=== PATIENT | female | born 1965 | race Caucasian/White ===

== ENCOUNTER 2018-05-14 15:47 | Inpatient (IN) | payer BC, OTHER ==
[2018-05-14] MEDS ORDERED: Albuterol/Ipratropium 3.0-0.5 MG/3 ML Neb Soln NEB ONE (16:15)
[2018-05-14] MEDS ORDERED: predniSONE 20 MG Tab PO STA (16:16)
[2018-05-14] MEDS ORDERED: Albuterol 0.083% 2.5 MG/3 ML Neb Soln NEB ONE (16:39)
[2018-05-14] MEDS ORDERED: Albuterol 0.083% 2.5 MG/3 ML Neb Soln NEB STA (17:01)
--- NOTE | 2018-05-14 17:14 | EDM.PDOC ---
ED HPI GENERAL MEDICAL PROBLEM - General Chief Complaint: Respiratory Problem Stated Complaint: SOB Time Seen by Provider: 05/14/18 15:59 Source of Information: Reports: Patient History Limitations: Reports: No Limitations - History of Present Illness INITIAL COMMENTS - FREE TEXT/NARRATIVE: The patient states that she has a history of asthma, diagnosed when she was in 11th grade, although she has never seen a Logging Tractor Operator, and has never undergone pulmonary function tests. She states that she has had shortness of breath, wheezing, and a cough productive of yellow/dark green sputum since 05/09/2018. Her wheezing is worse if she is supine. She reports some nasal and sinus congestion for the past 2 days. She states that her throat is sore from coughing. She states that she was seen at the clinic on 05/10/2018. A chest radiograph apparently showed haziness bibasilarly. She was given a DuoNeb in the clinic, then discharged with prescriptions for doxycycline and prednisone. She does not know the dose of the prednisone, but believes it is 10 mg a day. She states that her symptoms have not improved. The patient states that she has albuterol by nebulizer at home. She states that she will take a nap every hour at night when she is symptomatic, then another in the morning, and another around 13:00 in the afternoon. She states that she has a prescription for an albuterol MDI, but has not picked it up. She does not have a peak flow meter or space chamber at home. Despite the patient's history of asthma, she continues to smoke one pack of cigarettes per day, although states that she has not smoked any over the past few days. The patient has not been diagnosed with obstructive sleep apnea, however, she states that her twin sister has it, and the patient presumes that she has, as she is morbidly obese. The patient's PCP is Leona Deleon. Chest Pain Score (Numeric/FACES): 3 - Related Data Allergies Allergy/AdvReac Type Severity Reaction Status Date / Time cephalexin [From Keflex] Allergy Swelling Verified 05/14/18 15:59 codeine Allergy Vomiting Verified 05/14/18 15:59 Sulfa (Sulfonamide Allergy Vomiting Verified 05/14/18 15:59 Antibiotics) Home Meds: Home Meds Albuterol [Proventil Neb Soln] 1.25 mg NEB Q4H 05/14/18 [History] Past Medical History HEENT History: Reports: Impaired Vision Respiratory History: Reports: Asthma (presumed) Endocrine/Metabolic History: Reports: Obesity/BMI 30+ - Past Surgical History Female Surgical History: Reports: Hysterectomy Social & Family History - Family History Family Medical History: Noncontributory - Tobacco Use Smoking Status *Q: Current Every Day Smoker Years of Tobacco use: 37 Packs/Tins Daily: 1 - Alcohol Use Alcohol Use History: Yes Alcohol Use Frequency: Rarely - Recreational Drug Use Recreational Drug Use: No - Living Situation & Occupation Living situation: Reports: , Alone 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) ED ROS GENERAL - Review of Systems Review Of Systems: ROS reveals no pertinent complaints other than HPI. ED EXAM, GENERAL - Physical Exam Exam: See Below Exam Limited By: No Limitations General Appearance: Alert, WD/WN, No Apparent Distress Eye Exam: Bilateral Eye: EOMI, Normal Inspection Ears: Normal External Exam, Normal Canal, Hearing Grossly Normal, Normal TMs Nose: Normal Inspection, Normal Mucosa, No Blood Throat/Mouth: Normal Inspection, Normal Lips, Normal Teeth, Normal Gums, Normal Oropharynx, Normal Voice, No Airway Compromise Head: Atraumatic, Normocephalic Neck: Normal Inspection, Supple, Non-Tender, Full Range of Motion. No: Lymphadenopathy (L), Lymphadenopathy (R) Respiratory/Chest: No Respiratory Distress, No Accessory Muscle Use, Chest Non- Tender, Wheezing (expiratory, across all lung king). No: Crackles, Rhonchi Cardiovascular: Normal Peripheral Pulses, Regular Rate, Rhythm, No Gallop, No JVD, No Murmur, No Rub Peripheral Pulses: 4+: Radial (L), Radial (R) GI/Abdominal: Normal Bowel Sounds, Soft, Non-Tender, No Organomegaly, No Distention, No Abnormal Bruit, No Mass, Other (Obese) (Female) Exam: Deferred Rectal (Female) Exam: Deferred Back Exam: Normal Inspection, Full Range of Motion, NT Extremities: Normal Inspection, Normal Range of Motion, No Pedal Edema, Normal Capillary Refill Neurological: Alert, Oriented, Normal Cognition, No Motor/Sensory Deficits Psychiatric: Normal Affect Skin Exam: Warm, Dry, Intact, Normal Color, No Rash Course - Vital Signs Last Recorded V/S: Last Vital Signs Temp 36.3 C 05/14/18 15:52 Pulse 118 H 05/14/18 15:52 Resp 22 H 05/14/18 15:52 BP 130/78 05/14/18 15:52 Pulse Ox 91 L 05/14/18 17:02 - Orders/Labs/Meds Orders: Active Orders 24 hr Category Date Time Status RT Aerosol Therapy [RC] ASDIRECTED Care 05/14/18 16:16 Active RT Aerosol Therapy [RC] ASDIRECTED Care 05/14/18 16:39 Active RT Aerosol Therapy [RC] ASDIRECTED Care 05/14/18 17:02 Active RT Peak Flow Measurement [RC] ASDIRECTED Care 05/14/18 16:17 Active Chest 2V [CR] Stat Exams 05/14/18 17:02 Taken DME for Discharge [COMM] Stat Oth 05/14/18 16:17 Ordered Labs: Laboratory Tests 05/14/18 05/14/18 Range/Units 17:29 17:29 WBC 16.34 H (3.98-10.04) K/mm3 RBC 5.68 H (3.98-5.22) M/mm3 Hgb 15.5 (11.2-15.7) gm/L Hct 47.5 H (34.1-44.9) % MCV 83.6 (79.4-94.8) fl MCH 27.3 (25.6-32.2) pg MCHC 32.6 (32.2-35.5) g/dl RDW Std Deviation 45.8 (36.4-46.3) fL Plt Count 287 (182-369) K/mm3 MPV 10.3 (9.4-12.3) fl Neutrophils % (Manual) 70 H (40-60) % Band Neutrophils % 0 (0-10) % Lymphocytes % (Manual) 26 (20-40) % Atypical Lymphs % 0 % Monocytes % (Manual) 1 L (2-10) % Eosinophils % (Manual) 3 (0.7-5.8) % Basophils % (Manual) 0 L (0.1-1.2) Platelet Estimate Adequate RBC Morph Comment Normal Sodium 141 (136-145) mEq/L Potassium 3.5 (3.5-5.1) mEq/L Chloride 103 (98-107) mEq/L Carbon Dioxide 25 (21-32) mEq/L Anion Gap 16.5 H (5-15) BUN 16 (7-18) mg/dL Creatinine 0.8 (0.55-1.02) mg/dL Est Cr Clr Drug Dosing 73.18 mL/min Estimated GFR (MDRD) > 60 (>60) mL/min BUN/Creatinine Ratio 20.0 H (14-18) Glucose 125 H (74-106) mg/dL Calcium 9.3 (8.5-10.1) mg/dL Total Bilirubin 0.5 (0.2-1.0) mg/dL AST 29 (15-37) U/L ALT 59 (14-59) U/L Alkaline Phosphatase 108 (46-116) U/L Total Protein 7.7 (6.4-8.2) g/dl Albumin 3.5 (3.4-5.0) g/dl Globulin 4.2 gm/dL Albumin/Globulin Ratio 0.8 L (1-2) Meds: Medications Discontinued Medications Generic Name Dose Route Start Last Admin Trade Name Yfn PRN Reason Stop Dose Admin Albuterol 2.5 mg 05/14/18 16:39 05/14/18 16:43 Proventil Neb Soln NEB 05/14/18 16:40 2.5 mg ONETIME ONE Administration Albuterol 7.5 mg 05/14/18 17:01 05/14/18 17:16 Proventil Neb Soln NEB 05/14/18 17:02 7.5 mg ONETIME STA Administration Albuterol/Ipratropium 3 ml 05/14/18 16:15 05/14/18 16:26 Duoneb 3.0-0.5 Mg/3 Ml NEB 05/14/18 16:16 3 ml ONETIME ONE Administration Prednisone 60 mg 05/14/18 16:16 05/14/18 16:41 Prednisone PO 05/14/18 16:17 60 mg ONETIME STA Administration - Re-Assessments/Exams Free Text/Narrative Re-Assessment/Exam: 05/14/18 17:03 The patient's pre-and post DuoNeb peak flow was 240, then only up to 250 following an albuterol neb. Her lungs do not sound much better to me. Her peak flow technique is pretty good. I have ordered a triple albuterol neb, but will also check some blood work and a chest x-ray, to make sure that there is nothing else going on. The fact that her wheezing is worse when she is supine suggest chronic bronchitis, although she has not coughed in my presence. 05/14/18 18:13 2-view chest radiograph reviewed. Cardiac silhouette is within normal limits. No pulmonary vascular congestion. No pleural effusions. No focal infiltrate. No pneumothorax. There is mild hyperinflation, consistent with an asthma exacerbation, noted. Formal read per the Radiologist pending. 05/14/18 20:07 The patient was reevaluated. She has unchanged expiratory wheezes in all lung king, and her peak flow is still 250. I do not feel that we have made many inroads into her asthma exacerbation, and I am therefore recommending that she be admitted for further treatment. The patient has agreed. Case discussed with Dr. Ferris at 20:05. She accepts the patient for full admission to Med-Surg. She'll come by the ED to evaluate the patient. Departure - Departure Time of Disposition: 20:10 Disposition: Home, Self-Care 01 Condition: Fair Clinical Impression: Asthma exacerbation - Discharge Information *PRESCRIPTION DRUG MONITORING PROGRAM REVIEWED*: Not Applicable *COPY OF PRESCRIPTION DRUG MONITORING REPORT IN PATIENT ALBERT: Not Applicable - My Orders Last 24 Hours: My Active Orders 05/14/18 16:16 RT Aerosol Therapy [RC] ASDIRECTED 05/14/18 16:17 RT Peak Flow Measurement [RC] ASDIRECTED DME for Discharge [COMM] Stat 05/14/18 16:39 RT Aerosol Therapy [RC] ASDIRECTED 05/14/18 17:02 RT Aerosol Therapy [RC] ASDIRECTED Chest 2V [CR] Stat - Assessment/Plan Last 24 Hours: My Active Orders 05/14/18 16:16 RT Aerosol Therapy [RC] ASDIRECTED 05/14/18 16:17 RT Peak Flow Measurement [RC] ASDIRECTED DME for Discharge [COMM] Stat 05/14/18 16:39 RT Aerosol Therapy [RC] ASDIRECTED 05/14/18 17:02 RT Aerosol Therapy [RC] ASDIRECTED Chest 2V [CR] Stat
[2018-05-14] MEDS ORDERED: Acetaminophen 325 MG Tab PO PRN (21:07)
[2018-05-14] MEDS ORDERED: Temazepam 7.5 MG Cap PO PRN (21:13)
[2018-05-14] MEDS ORDERED: Albuterol 0.083% 2.5 MG/3 ML Neb Soln NEB PRN (21:13)
[2018-05-14] MEDS ORDERED: Benzonatate 100 MG Cap PO PRN (21:13)
[2018-05-14] MEDS ORDERED: Sodium Chloride 0.9% 10 ML Syringe FLUSH PRN (22:25)
[2018-05-14] MEDS: Levofloxacin/Dextrose 5%-Water 750 MG in Premix Bag 1 BAG IV SCH (22:46)
[2018-05-14] MEDS: Nicotine 21 MG/24 Hr Patch TRDERM SCH (22:49)
[2018-05-15] MEDS: methylPREDNISolone Sodium Succinate 125 MG/2 ML SDV IVPUSH SCH ×5 (00:31→20:37)
[2018-05-15] MEDS: Albuterol/Ipratropium 3.0-0.5 MG/3 ML Neb Soln NEB SCH ×4 (03:31→20:16)
[2018-05-15] MEDS ORDERED: Sodium Chloride 0.9% 1,000 ML IV ONE (07:08)
--- NOTE | 2018-05-15 07:34 | CR ---
Chest: 2 views of the chest were obtained. Comparison: No prior chest x-ray. Lung markings are slightly increased suspicious for bronchitis. Lungs otherwise are clear with no acute alveolar opacities. Bony structures are within normal limits for the patient's age. Heart size and mediastinum are normal. Impression: 1. Mild increased central lung markings most likely representing bronchitis. Diagnostic code #3
[2018-05-15] MEDS: Sodium Chloride 0.9% 1,000 ML IV SCH ×3 (08:42→20:34)
[2018-05-15] MEDS: Nicotine 21 MG/24 Hr Patch TRDERM SCH (09:06)
[2018-05-15] MEDS: Remove Patch **NICOTINE TRDERM SCH (09:07)
--- NOTE | 2018-05-15 10:04 | PCM.PN ---
- General Info Date of Service: 05/15/18 Functional Status: Reports: Tolerating Diet, Ambulating (only walking in the room) - Review of Systems General: Reports: Weakness HEENT: Reports: No Symptoms Pulmonary: Reports: Shortness of Breath Cardiovascular: Reports: No Symptoms Gastrointestinal: Reports: No Symptoms Genitourinary: Reports: No Symptoms Musculoskeletal: Reports: No Symptoms Skin: Reports: No Symptoms Neurological: Reports: No Symptoms Psychiatric: Reports: No Symptoms - Patient Data Vitals - Most Recent: Last Vital Signs Temp 37.4 C 05/15/18 08:20 Pulse 111 H 05/15/18 08:39 Resp 14 05/15/18 08:20 BP 144/75 H 05/15/18 08:20 Pulse Ox 92 L 05/15/18 08:40 Weight - Most Recent: 130.362 kg I&O - Last 24 Hours: Intake & Output 05/14/18 05/15/18 05/15/18 22:59 06:59 14:59 Intake Total 940 Output Total 1000 Balance -60 Lab Results Last 24 Hours: Laboratory Results - last 24 hr 05/14/18 05/14/18 05/15/18 Range/Units 17:29 17:29 05:50 WBC 16.34 H 14.81 H (3.98-10.04) K/mm3 RBC 5.68 H 5.65 H (3.98-5.22) M/mm3 Hgb 15.5 15.6 (11.2-15.7) gm/L Hct 47.5 H 47.2 H (34.1-44.9) % MCV 83.6 83.5 (79.4-94.8) fl MCH 27.3 27.6 (25.6-32.2) pg MCHC 32.6 33.1 (32.2-35.5) g/dl RDW Std Deviation 45.8 45.5 (36.4-46.3) fL Plt Count 287 275 (182-369) K/mm3 MPV 10.3 10.2 (9.4-12.3) fl Neut % (Auto) 87.2 H (34.0-71.1) % Lymph % (Auto) 10.9 L (19.3-51.7) % Cecil % (Auto) 1.1 L (4.7-12.5) % Eos % (Auto) 0.1 L (0.7-5.8) Baso % (Auto) 0.1 (0.1-1.2) % Neut # (Auto) 12.92 H (1.56-6.13) K/mm3 Lymph # (Auto) 1.61 (1.18-3.74) K/mm3 Cecil # (Auto) 0.17 L (0.24-0.36) K/mm3 Eos # (Auto) 0.01 L (0.04-0.36) K/mm3 Baso # (Auto) 0.01 (0.01-0.08) K/mm3 Neutrophils % (Manual) 70 H (40-60) % Band Neutrophils % 0 (0-10) % Lymphocytes % (Manual) 26 (20-40) % Atypical Lymphs % 0 % Monocytes % (Manual) 1 L (2-10) % Eosinophils % (Manual) 3 (0.7-5.8) % Basophils % (Manual) 0 L (0.1-1.2) Manual Slide Review Abnormal smear Platelet Estimate Adequate RBC Morph Comment Normal Sodium 141 (136-145) mEq/L Potassium 3.5 (3.5-5.1) mEq/L Chloride 103 (98-107) mEq/L Carbon Dioxide 25 (21-32) mEq/L Anion Gap 16.5 H (5-15) BUN 16 (7-18) mg/dL Creatinine 0.8 (0.55-1.02) mg/dL Est Cr Clr Drug Dosing 73.18 mL/min Estimated GFR (MDRD) > 60 (>60) mL/min BUN/Creatinine Ratio 20.0 H (14-18) Glucose 125 H (74-106) mg/dL Lactic Acid (0.4-2.0) mmol/L Calcium 9.3 (8.5-10.1) mg/dL Magnesium (1.8-2.4) mg/dl Total Bilirubin 0.5 (0.2-1.0) mg/dL AST 29 (15-37) U/L ALT 59 (14-59) U/L Alkaline Phosphatase 108 (46-116) U/L Total Protein 7.7 (6.4-8.2) g/dl Albumin 3.5 (3.4-5.0) g/dl Globulin 4.2 gm/dL Albumin/Globulin Ratio 0.8 L (1-2) Mycoplasma pneumon IgM (NEGATIVE) 05/15/18 05/15/18 Range/Units 05:50 05:50 WBC (3.98-10.04) K/mm3 RBC (3.98-5.22) M/mm3 Hgb (11.2-15.7) gm/L Hct (34.1-44.9) % MCV (79.4-94.8) fl MCH (25.6-32.2) pg MCHC (32.2-35.5) g/dl RDW Std Deviation (36.4-46.3) fL Plt Count (182-369) K/mm3 MPV (9.4-12.3) fl Neut % (Auto) (34.0-71.1) % Lymph % (Auto) (19.3-51.7) % Cecil % (Auto) (4.7-12.5) % Eos % (Auto) (0.7-5.8) Baso % (Auto) (0.1-1.2) % Neut # (Auto) (1.56-6.13) K/mm3 Lymph # (Auto) (1.18-3.74) K/mm3 Cecil # (Auto) (0.24-0.36) K/mm3 Eos # (Auto) (0.04-0.36) K/mm3 Baso # (Auto) (0.01-0.08) K/mm3 Neutrophils % (Manual) (40-60) % Band Neutrophils % (0-10) % Lymphocytes % (Manual) (20-40) % Atypical Lymphs % % Monocytes % (Manual) (2-10) % Eosinophils % (Manual) (0.7-5.8) % Basophils % (Manual) (0.1-1.2) Manual Slide Review Platelet Estimate RBC Morph Comment Sodium 136 (136-145) mEq/L Potassium 4.4 (3.5-5.1) mEq/L Chloride 101 (98-107) mEq/L Carbon Dioxide 23 (21-32) mEq/L Anion Gap 16.4 H (5-15) BUN 16 (7-18) mg/dL Creatinine 0.9 (0.55-1.02) mg/dL Est Cr Clr Drug Dosing 65.05 mL/min Estimated GFR (MDRD) > 60 (>60) mL/min BUN/Creatinine Ratio 17.8 (14-18) Glucose 232 H (74-106) mg/dL Lactic Acid 2.2 H (0.4-2.0) mmol/L Calcium 9.1 (8.5-10.1) mg/dL Magnesium 2.1 (1.8-2.4) mg/dl Total Bilirubin (0.2-1.0) mg/dL AST (15-37) U/L ALT (14-59) U/L Alkaline Phosphatase (46-116) U/L Total Protein (6.4-8.2) g/dl Albumin (3.4-5.0) g/dl Globulin gm/dL Albumin/Globulin Ratio (1-2) Mycoplasma pneumon IgM Negative (NEGATIVE) Med Orders - Current: Current Medications Acetaminophen (Tylenol) 650 mg PO Q6H PRN PRN Reason: Pain Albuterol (Proventil Neb Soln) 2.5 mg NEB Q4HRRT PRN PRN Reason: shortness of breath Albuterol/Ipratropium (Duoneb 3.0-0.5 Mg/3 Ml) 3 ml NEB Q6HRRT [facility] Last Admin: 05/15/18 08:37 Dose: 3 ml Benzonatate (Tessalon Perles) 100 mg PO Q8HR PRN PRN Reason: Cough Last Admin: 05/15/18 00:45 Dose: 100 mg Levofloxacin/Dextrose 750 mg/ (Premix) 150 mls @ 100 mls/hr IV Q24H [facility] Last Admin: 05/14/18 22:46 Dose: 100 mls/hr Sodium Chloride (Normal Saline) 1,000 mls @ 150 mls/hr IV ASDIRECTED [facility] Last Admin: 05/15/18 08:42 Dose: 150 mls/hr Methylprednisolone Sodium Succinate (Solu-Medrol) 125 mg IVPUSH Q6H [facility] Last Admin: 05/15/18 09:07 Dose: 125 mg Miscellaneous Information (Remove Patch) 1 ea TRDERM DAILY [facility] Last Admin: 05/15/18 09:07 Dose: Not Given Nicotine (Habitrol) 21 mg TRDERM DAILY [facility] Last Admin: 05/15/18 09:06 Dose: Not Given Pneumococcal Polyvalent Vaccine (Pneumovax 23) 0.5 ml IM .ONCE ONE Stop: 05/16/18 09:01 Sodium Chloride (Saline Flush) 10 ml FLUSH ASDIRECTED PRN PRN Reason: Keep Vein Open Temazepam (Restoril) 7.5 mg PO BEDTIME PRN PRN Reason: Sleep Discontinued Medications Albuterol (Proventil Neb Soln) 2.5 mg NEB ONETIME ONE Stop: 05/14/18 16:40 Last Admin: 05/14/18 16:43 Dose: 2.5 mg Albuterol (Proventil Neb Soln) 7.5 mg NEB ONETIME STA Stop: 05/14/18 17:02 Last Admin: 05/14/18 17:16 Dose: 7.5 mg Albuterol/Ipratropium (Duoneb 3.0-0.5 Mg/3 Ml) 3 ml NEB ONETIME ONE Stop: 05/14/18 16:16 Last Admin: 05/14/18 16:26 Dose: 3 ml Sodium Chloride (Normal Saline) 1,000 mls @ 999 mls/hr IV ONETIME ONE Stop: 05/15/18 08:08 Last Admin: 05/15/18 07:18 Dose: 999 mls/hr Prednisone (Prednisone) 60 mg PO ONETIME STA Stop: 05/14/18 16:17 Last Admin: 05/14/18 16:41 Dose: 60 mg - Exam Quality Assessment: DVT Prophylaxis General: Alert, Oriented, Cooperative, No Acute Distress HEENT: Pupils Equal, Pupils Reactive, EOMI Neck: Trachea Midline, No JVD Lungs: Normal Respiratory Effort, Decreased Breath Sounds, Wheezing Cardiovascular: Regular Rate, Tachycardia GI/Abdominal Exam: Normal Bowel Sounds, Soft, Non-Tender, No Organomegaly, No Distention (Female) Exam: Deferred Back Exam: Normal Inspection Extremities: Normal Inspection, Normal Capillary Refill Skin: Warm Neurological: No New Focal Deficit, Normal Speech Psy/Mental Status: Alert, Normal Affect, Normal Mood - Problem List Review Problem List Initiated/Reviewed/Updated: Yes - My Orders Last 24 Hours: My Active Orders 05/14/18 21:07 Acetaminophen [Tylenol] 650 mg PO Q6H PRN 05/14/18 21:13 Albuterol [Proventil Neb Soln] 2.5 mg NEB Q4HRRT PRN Benzonatate [Tessalon Perles] 100 mg PO Q8HR PRN Temazepam [Restoril] 7.5 mg PO BEDTIME PRN 05/14/18 21:17 RT Aerosol Therapy [RC] ASDIRECTED 05/14/18 21:30 Nicotine [Habitrol] 21 mg TRDERM DAILY 05/14/18 22:00 Levofloxacin/Dextrose 5%-Water [Levaquin in D5W 750 MG/150 ML] 750 mg Premix Bag 1 bag IV Q24H methylPREDNISolone Sod Succ [Solu-MEDROL] 125 mg IVPUSH Q6H 05/14/18 22:12 MISC TEST Routine 05/14/18 22:20 Resuscitation Status Routine 05/14/18 22:25 Sodium Chloride 0.9% [Saline Flush] 10 ml FLUSH ASDIRECTED PRN Saline Lock Insert [OM.PC] Routine 05/14/18 23:13 Activity as Tolerated [RC] .Routine 05/15/18 00:14 Oxygen Therapy [RC] ASDIRECTED 05/15/18 03:00 Albuterol/Ipratropium [DuoNeb 3.0-0.5 MG/3 ML] 3 ml NEB Q6HRRT 05/15/18 05:50 CRP, HIGH SENSITIVITY [REF] Routine 05/15/18 06:00 STREP PNEUMONIAE ANTIGEN [MREF] Routine 05/15/18 07:10 Blood Culture x2 Reflex Set [OM.PC] Stat 05/15/18 07:35 CULTURE BLOOD [BC] Stat 05/15/18 07:50 CULTURE BLOOD [BC] Stat 05/15/18 08:30 Sodium Chloride 0.9% [Normal Saline] 1,000 ml IV ASDIRECTED 05/15/18 09:00 Remove Patch 1 ea TRDERM DAILY 05/15/18 14:00 Chest 2V [CR] Routine 05/15/18 Breakfast Heart Healthy Diet [DIET] 05/16/18 09:00 Pneumococcal Polyvalent-23 Vac [Pneumovax 23] 0.5 ml IM .ONCE ONE - Plan Plan:: Impression: Acute exacerbation of Asthma Failed outpatient treatment for bronchitis Tobacco dependence-->discussed tobacco cessation, has not committed to stop, will follow up Query PNA-->CXR to be repeated on 05/16/18 Sepsis-->criteria for sepsis Morbid obesity--weight loss program Plan: Tobacco cessation Nebs scheduled/prn Levaquin IV Steroids IV Peak Flow Meter Droplet isolation PNA work up Sepsis work up IVF-->0.9 NS, 1 liter bolus, run at 150 cc/hr--05/16/18. Dietary consult-->weight loss Consult PT/OT Sleep apnea eval as OP. DVT/GI prophylaxis
--- NOTE | 2018-05-15 10:04 | PCM.HP ---
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 She became short of breath, began noticeably wheezing and had a productive cough. Additional complaint of nasal congestion was also voiced to a health care provider. The following Thursday (), she was seen at a clinic where she was started on prednisone and doxycycline after a chest X ray was suggestive of bronchitis. Unfortunately unlike previous episodes she has experienced little relief. Multiple breathing treatments provided in the ED were unsuccessful. The patient has failed outpatient medical therapy. She will be admitted to [facility] with telemetry. The patient is a full code; her PCP is Alicia Deleon. Asthma history: no intubations; smokes cigarettes; morbidly obese; no peak flow meter; no PFTs; no RUEL evaluation; has never seen a screen operator. Has had a prescription for Albuterol MDI, but it was never picked up after being seen by a provider on 05/10/2018. Onset of Symptoms: Reports: Gradual Symptom Onset Date: 05/09/18 Duration of Symptoms: Reports: Day(s):, Getting Worse Location: Reports: Chest, Generalized Quality: Reports: Same as Previous Episode Severity: Moderate Improves with: Reports: Medication Worsens with: Reports: None Context: Reports: Sick Contact (unknown) Associated Symptoms: Reports: cough w sputum, Malaise, Nausea/Vomiting, Shortness of Breath, Weakness Chest Pain Score (Numeric/FACES): 3 - Related Data Allergies/Adverse Reactions: Allergies Allergy/AdvReac Type Severity Reaction Status Date / Time cephalexin [From Keflex] Allergy Swelling Verified 05/14/18 15:59 codeine Allergy Vomiting Verified 05/14/18 15:59 Sulfa (Sulfonamide Allergy Vomiting Verified 05/14/18 15:59 Antibiotics) Home Medications: Home Meds Albuterol [Proventil Neb Soln] 1.25 mg NEB Q4H 05/14/18 [History] Past Medical History HEENT History: Reports: Impaired Vision Respiratory History: Reports: Asthma, 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: Endocrine/Metabolic History: Reports: Obesity/BMI 30+ - Past Surgical History Female Surgical History: Reports: Hysterectomy Social & Family History - Family History Family Medical History: Noncontributory - Tobacco Use Smoking Status *Q: Current Every Day Smoker Years of Tobacco use: 37 Packs/Tins Daily: 1 Used Tobacco, but Quit: No Second Hand Smoke Exposure: No - Caffeine Use Caffeine Use: Reports: Soda - Recreational Drug Use Recreational Drug Use: No - Living Situation & Occupation Living situation: Reports: , Alone Occupation: Employed (LOG SORTING SUPERVISOR [facility] [employer] H&P Review of Systems - Review of Systems: Review Of Systems: See Below General: Reports: Malaise, Weakness HEENT: Reports: No Symptoms Pulmonary: Reports: Shortness of Breath, Wheezing, Pleuritic Chest Pain Cardiovascular: Reports: No Symptoms Gastrointestinal: Reports: No Symptoms Genitourinary: Reports: No Symptoms Musculoskeletal: Reports: No Symptoms Skin: Reports: No Symptoms Psychiatric: Reports: No Symptoms Neurological: Reports: No Symptoms Hematologic/Lymphatic: Reports: No Symptoms Immunologic: Reports: No Symptoms Exam - Exam Exam: See Below - Vital Signs Vital Signs: Last Vital Signs Temp 37.4 C 05/15/18 08:20 Pulse 111 H 05/15/18 08:39 Resp 14 05/15/18 08:20 BP 144/75 H 05/15/18 08:20 Pulse Ox 92 L 05/15/18 08:40 Weight: 130.362 kg - Exam Quality Assessment: Supplemental Oxygen General: Alert, Oriented, Cooperative HEENT: Conjunctiva Clear, EOMI, Nares Patent, Normal Nasal Septum, Pupils Equal , Pupils Reactive, PERRLA Neck: Supple, Trachea Midline Lungs: Decreased Breath Sounds, Rhonchi, Wheezing Cardiovascular: Regular Rate, Tachycardia GI/Abdominal Exam: Normal Bowel Sounds, Soft, Non-Tender, No Organomegaly, No Distention (Female) Exam: Deferred Rectal (Female) Exam: Deferred Back Exam: Normal Inspection Extremities: Normal Inspection, Non-Tender, Slow Capillary Refill Skin: Warm Neurological: Cranial Nerves Intact, Normal Speech Neuro Extensive - Mental Status: Alert, Oriented x3, Normal Mood/Affect, Normal Cognition, Memory Intact - Patient Data Lab Results Last 24 hrs: Laboratory Results - last 24 hr 05/14/18 05/14/18 05/15/18 Range/Units 17:29 17:29 05:50 WBC 16.34 H 14.81 H (3.98-10.04) K/mm3 RBC 5.68 H 5.65 H (3.98-5.22) M/mm3 Hgb 15.5 15.6 (11.2-15.7) gm/L Hct 47.5 H 47.2 H (34.1-44.9) % MCV 83.6 83.5 (79.4-94.8) fl MCH 27.3 27.6 (25.6-32.2) pg MCHC 32.6 33.1 (32.2-35.5) g/dl RDW Std Deviation 45.8 45.5 (36.4-46.3) fL Plt Count 287 275 (182-369) K/mm3 MPV 10.3 10.2 (9.4-12.3) fl Neut % (Auto) 87.2 H (34.0-71.1) % Lymph % (Auto) 10.9 L (19.3-51.7) % [place]comb % (Auto) 1.1 L (4.7-12.5) % Eos % (Auto) 0.1 L (0.7-5.8) Baso % (Auto) 0.1 (0.1-1.2) % Neut # (Auto) 12.92 H (1.56-6.13) K/mm3 Lymph # (Auto) 1.61 (1.18-3.74) K/mm3 [place] # (Auto) 0.17 L (0.24-0.36) K/mm3 Eos # (Auto) 0.01 L (0.04-0.36) K/mm3 Baso # (Auto) 0.01 (0.01-0.08) K/mm3 Neutrophils % (Manual) 70 H (40-60) % Band Neutrophils % 0 (0-10) % Lymphocytes % (Manual) 26 (20-40) % Atypical Lymphs % 0 % Monocytes % (Manual) 1 L (2-10) % Eosinophils % (Manual) 3 (0.7-5.8) % Basophils % (Manual) 0 L (0.1-1.2) Manual Slide Review Abnormal smear Platelet Estimate Adequate RBC Morph Comment Normal Sodium 141 (136-145) mEq/L Potassium 3.5 (3.5-5.1) mEq/L Chloride 103 (98-107) mEq/L Carbon Dioxide 25 (21-32) mEq/L Anion Gap 16.5 H (5-15) BUN 16 (7-18) mg/dL Creatinine 0.8 (0.55-1.02) mg/dL Est Cr Clr Drug Dosing 73.18 mL/min Estimated GFR (MDRD) > 60 (>60) mL/min BUN/Creatinine Ratio 20.0 H (14-18) Glucose 125 H (74-106) mg/dL Lactic Acid (0.4-2.0) mmol/L Calcium 9.3 (8.5-10.1) mg/dL Magnesium (1.8-2.4) mg/dl Total Bilirubin 0.5 (0.2-1.0) mg/dL AST 29 (15-37) U/L ALT 59 (14-59) U/L Alkaline Phosphatase 108 (46-116) U/L Total Protein 7.7 (6.4-8.2) g/dl Albumin 3.5 (3.4-5.0) g/dl Globulin 4.2 gm/dL Albumin/Globulin Ratio 0.8 L (1-2) Mycoplasma pneumon IgM (NEGATIVE) 05/15/18 05/15/18 Range/Units 05:50 05:50 WBC (3.98-10.04) K/mm3 RBC (3.98-5.22) M/mm3 Hgb (11.2-15.7) gm/L Hct (34.1-44.9) % MCV (79.4-94.8) fl MCH (25.6-32.2) pg MCHC (32.2-35.5) g/dl RDW Std Deviation (36.4-46.3) fL Plt Count (182-369) K/mm3 MPV (9.4-12.3) fl Neut % (Auto) (34.0-71.1) % Lymph % (Auto) (19.3-51.7) % [place]comb % (Auto) (4.7-12.5) % Eos % (Auto) (0.7-5.8) Baso % (Auto) (0.1-1.2) % Neut # (Auto) (1.56-6.13) K/mm3 Lymph # (Auto) (1.18-3.74) K/mm3 [place]comb # (Auto) (0.24-0.36) K/mm3 Eos # (Auto) (0.04-0.36) K/mm3 Baso # (Auto) (0.01-0.08) K/mm3 Neutrophils % (Manual) (40-60) % Band Neutrophils % (0-10) % Lymphocytes % (Manual) (20-40) % Atypical Lymphs % % Monocytes % (Manual) (2-10) % Eosinophils % (Manual) (0.7-5.8) % Basophils % (Manual) (0.1-1.2) Manual Slide Review Platelet Estimate RBC Morph Comment Sodium 136 (136-145) mEq/L Potassium 4.4 (3.5-5.1) mEq/L Chloride 101 (98-107) mEq/L Carbon Dioxide 23 (21-32) mEq/L Anion Gap 16.4 H (5-15) BUN 16 (7-18) mg/dL Creatinine 0.9 (0.55-1.02) mg/dL Est Cr Clr Drug Dosing 65.05 mL/min Estimated GFR (MDRD) > 60 (>60) mL/min BUN/Creatinine Ratio 17.8 (14-18) Glucose 232 H (74-106) mg/dL Lactic Acid 2.2 H (0.4-2.0) mmol/L Calcium 9.1 (8.5-10.1) mg/dL Magnesium 2.1 (1.8-2.4) mg/dl Total Bilirubin (0.2-1.0) mg/dL AST (15-37) U/L ALT (14-59) U/L Alkaline Phosphatase (46-116) U/L Total Protein (6.4-8.2) g/dl Albumin (3.4-5.0) g/dl Globulin gm/dL Albumin/Globulin Ratio (1-2) Mycoplasma pneumon IgM Negative (NEGATIVE) Result Diagrams: 05/15/18 05:50 05/15/18 05:50 - Problem List (1) Morbidly obese SNOMED Code(s): 472329690 ICD Code: E66.01 - MORBID (SEVERE) OBESITY DUE TO EXCESS CALORIES Status: Acute Current Visit: Yes (2) Tobacco dependence due to cigarettes SNOMED Code(s): 61024050596303184 ICD Code: F17.210 - NICOTINE DEPENDENCE, CIGARETTES, UNCOMPLICATED Status: Acute Current Visit: Yes (3) Asthma exacerbation SNOMED Code(s): 644626156 ICD Code: J45.901 - UNSPECIFIED ASTHMA WITH (ACUTE) EXACERBATION Status: Acute Current Visit: Yes Problem List Initiated/Reviewed/Updated: Yes Orders Last 24hrs: Active Orders 24 hr Category Date Time Status Patient Status [ADT] Routine ADT 05/14/18 20:33 Active Activity as Tolerated [RC] .Routine Care 05/14/18 23:13 Active Oxygen Therapy [RC] ASDIRECTED Care 05/15/18 00:14 Active RT Aerosol Therapy [RC] ASDIRECTED Care 05/14/18 21:17 Active RT Peak Flow Measurement [RC] ASDIRECTED Care 05/14/18 16:17 Active Heart Healthy Diet [DIET] Diet 05/15/18 Breakfast Active Chest 2V [CR] Routine Exams 05/15/18 14:00 Ordered CRP, HIGH SENSITIVITY [REF] Routine Lab 05/15/18 05:50 Received CULTURE BLOOD [BC] Stat Lab 05/15/18 07:35 Received CULTURE BLOOD [BC] Stat Lab 05/15/18 07:50 Received MISC TEST Routine Lab 05/14/18 22:12 Received STREP PNEUMONIAE ANTIGEN [MREF] Routine Lab 05/15/18 06:00 Ordered Acetaminophen [Tylenol] Med 05/14/18 21:07 Active 650 mg PO Q6H PRN Albuterol [Proventil Neb Soln] Med 05/14/18 21:13 Active 2.5 mg NEB Q4HRRT PRN Albuterol/Ipratropium [DuoNeb 3.0-0.5 MG/3 ML] Med 05/15/18 03:00 Active 3 ml NEB Q6HRRT Benzonatate [Tessalon Perles] Med 05/14/18 21:13 Active 100 mg PO Q8HR PRN Levofloxacin/Dextrose 5%-Water [Levaquin in D5W 750 MG/ Med 05/14/18 22:00 Active 150 ML] 750 mg Premix Bag 1 bag IV Q24H Nicotine [Habitrol] Med 05/14/18 21:30 Active 21 mg TRDERM DAILY Pneumococcal Polyvalent-23 Vac [Pneumovax 23] Med 05/16/18 09:00 Once 0.5 ml IM .ONCE ONE Remove Patch Med 05/15/18 09:00 Active 1 ea TRDERM DAILY Sodium Chloride 0.9% [Normal Saline] 1,000 ml Med 05/15/18 08:30 Active IV ASDIRECTED Sodium Chloride 0.9% [Saline Flush] Med 05/14/18 22:25 Active 10 ml FLUSH ASDIRECTED PRN Temazepam [Restoril] Med 05/14/18 21:13 Active 7.5 mg PO BEDTIME PRN methylPREDNISolone Sod Succ [Solu-MEDROL] Med 05/14/18 22:00 Active 125 mg IVPUSH Q6H Blood Culture x2 Reflex Set [OM.PC] Stat Oth 05/15/18 07:10 Ordered DME for Discharge [COMM] Stat Ot 05/14/18 16:17 Ordered Saline Lock Insert [OM.PC] Routine Oth 05/14/18 22:25 Ordered Resuscitation Status Routine Resus Stat 05/14/18 22:20 Ordered Medication Orders Acetaminophen (Tylenol) 650 mg PO Q6H PRN PRN Reason: Pain Albuterol (Proventil Neb Soln) 2.5 mg NEB Q4HRRT PRN PRN Reason: shortness of breath Albuterol/Ipratropium (Duoneb 3.0-0.5 Mg/3 Ml) 3 ml NEB Q6HRRT [facility] Last Admin: 05/15/18 08:37 Dose: 3 ml Admin: 05/15/18 03:31 Dose: 3 ml Benzonatate (Tessalon Perles) 100 mg PO Q8HR PRN PRN Reason: Cough Last Admin: 05/15/18 00:45 Dose: 100 mg Levofloxacin/Dextrose 750 mg/ (Premix) 150 mls @ 100 mls/hr IV Q24H [facility] Last Admin: 05/14/18 22:46 Dose: 100 mls/hr Sodium Chloride (Normal Saline) 1,000 mls @ 150 mls/hr IV ASDIRECTED [facility] Last Admin: 05/15/18 08:42 Dose: 150 mls/hr Methylprednisolone Sodium Succinate (Solu-Medrol) 125 mg IVPUSH Q6H [facility] Last Admin: 05/15/18 09:07 Dose: 125 mg Admin: 05/15/18 03:56 Dose: 125 mg Admin: 05/15/18 00:31 Dose: 125 mg Miscellaneous Information (Remove Patch) 1 ea TRDERM DAILY [facility] Last Admin: 05/15/18 09:07 Dose: Not Given Nicotine (Habitrol) 21 mg TRDERM DAILY [facility] Last Admin: 05/15/18 09:06 Dose: Not Given Admin: 05/14/18 22:49 Dose: Not Given Pneumococcal Polyvalent Vaccine (Pneumovax 23) 0.5 ml IM .ONCE ONE Stop: 05/16/18 09:01 Sodium Chloride (Saline Flush) 10 ml FLUSH ASDIRECTED PRN PRN Reason: Keep Vein Open Temazepam (Restoril) 7.5 mg PO BEDTIME PRN PRN Reason: Sleep Assessment/Plan Comment:: Impression: Acute exacerbation of Asthma Failed outpatient treatment for bronchitis Tobacco dependence Query PNA Query Sepsis Morbid obesity Plan: Tobacco cessation Nebs scheduled/prn Levaquin IV Steroids IV Peak Flow Meter Droplet isolation PNA work up Sepsis work up IVF Dietary consult Consult PT/OT Sleep apnea eval as OP. DVT/GI prophylaxis
[2018-05-15] MEDS: Levofloxacin/Dextrose 5%-Water 750 MG in Premix Bag 1 BAG IV SCH (21:00)
[2018-05-16] MEDS: Albuterol/Ipratropium 3.0-0.5 MG/3 ML Neb Soln NEB SCH ×5 (03:16→20:06)
[2018-05-16] MEDS: methylPREDNISolone Sodium Succinate 125 MG/2 ML SDV IVPUSH SCH ×5 (03:59→21:10)
[2018-05-16] MEDS: Sodium Chloride 0.9% 1,000 ML IV SCH (04:05)
[2018-05-16] MEDS ORDERED: Pneumococcal Polyvalent-23 Vaccine 0.5 ML SDV IM ONE (09:00)
[2018-05-16] MEDS: Remove Patch **NICOTINE TRDERM SCH (09:29)
[2018-05-16] MEDS: Nicotine 21 MG/24 Hr Patch TRDERM SCH (09:30)
--- NOTE | 2018-05-16 11:13 | PCM.PN ---
- General Info Date of Service: 05/16/18 Functional Status: Reports: Tolerating Diet, Ambulating - Review of Systems General: Reports: Weakness HEENT: Reports: No Symptoms Pulmonary: Reports: Shortness of Breath Cardiovascular: Reports: No Symptoms Gastrointestinal: Reports: No Symptoms Genitourinary: Reports: No Symptoms Musculoskeletal: Reports: No Symptoms Skin: Reports: No Symptoms Neurological: Reports: No Symptoms Psychiatric: Reports: No Symptoms - Patient Data Vitals - Most Recent: Last Vital Signs Temp 36.5 C 05/16/18 09:26 Pulse 110 H 05/16/18 09:26 Resp 20 05/16/18 09:26 BP 117/56 L 05/16/18 09:26 Pulse Ox 91 L 05/16/18 09:26 Weight - Most Recent: 132.585 kg I&O - Last 24 Hours: Intake & Output 05/15/18 05/16/18 05/16/18 22:59 06:59 14:59 Intake Total 3331 1512 Output Total 1800 1950 Balance 1531 -438 Lab Results Last 24 Hours: Laboratory Results - last 24 hr 05/16/18 05/16/18 05/16/18 Range/Units 09:16 09:16 09:16 WBC 23.73 H (3.98-10.04) K/mm3 RBC 5.14 (3.98-5.22) M/mm3 Hgb 14.3 (11.2-15.7) gm/L Hct 43.5 (34.1-44.9) % MCV 84.6 (79.4-94.8) fl MCH 27.8 (25.6-32.2) pg MCHC 32.9 (32.2-35.5) g/dl RDW Std Deviation 47.0 H (36.4-46.3) fL Plt Count 292 (182-369) K/mm3 MPV 10.2 (9.4-12.3) fl Neut % (Auto) 86.5 H (34.0-71.1) % Lymph % (Auto) 9.9 L (19.3-51.7) % [place] % (Auto) 3.0 L (4.7-12.5) % Eos % (Auto) 0 L (0.7-5.8) Baso % (Auto) 0.1 (0.1-1.2) % Neut # (Auto) 20.50 H (1.56-6.13) K/mm3 Lymph # (Auto) 2.36 (1.18-3.74) K/mm3 [place] # (Auto) 0.72 H (0.24-0.36) K/mm3 Eos # (Auto) 0.01 L (0.04-0.36) K/mm3 Baso # (Auto) 0.02 (0.01-0.08) K/mm3 Manual Slide Review Abnormal smear Sodium 137 (136-145) mEq/L Potassium 4.9 (3.5-5.1) mEq/L Chloride 105 (98-107) mEq/L Carbon Dioxide 23 (21-32) mEq/L Anion Gap 13.9 (5-15) BUN 13 (7-18) mg/dL Creatinine 0.9 (0.55-1.02) mg/dL Est Cr Clr Drug Dosing 65.05 mL/min Estimated GFR (MDRD) > 60 (>60) mL/min BUN/Creatinine Ratio 14.4 (14-18) Glucose 326 H (74-106) mg/dL Lactic Acid 3.7 H (0.4-2.0) mmol/L Calcium 8.7 (8.5-10.1) mg/dL Boo Results Last 24 Hours: Microbiology 05/15/18 07:50 Aerobic Blood Culture - Preliminary Blood - Venous - Lab Draw NO GROWTH AFTER 1 DAY Anaerobic Blood Culture - Preliminary NO GROWTH AFTER 1 DAY 05/15/18 07:35 Aerobic Blood Culture - Preliminary Blood - Venous NO GROWTH AFTER 1 DAY Anaerobic Blood Culture - Preliminary NO GROWTH AFTER 1 DAY Med Orders - Current: Current Medications Acetaminophen (Tylenol) 650 mg PO Q6H PRN PRN Reason: Pain Albuterol (Proventil Neb Soln) 2.5 mg NEB Q4HRRT PRN PRN Reason: shortness of breath Albuterol/Ipratropium (Duoneb 3.0-0.5 Mg/3 Ml) 3 ml NEB Q6HRRT [facility] Last Admin: 05/16/18 08:59 Dose: 3 ml Benzonatate (Tessalon Perles) 100 mg PO Q8HR PRN PRN Reason: Cough Last Admin: 05/15/18 00:45 Dose: 100 mg Levofloxacin/Dextrose 750 mg/ (Premix) 150 mls @ 100 mls/hr IV Q24H [facility] Last Admin: 05/15/18 21:00 Dose: 100 mls/hr Sodium Chloride (Normal Saline) 1,000 mls @ 150 mls/hr IV ASDIRECTED [facility] Last Admin: 05/16/18 04:05 Dose: 150 mls/hr Methylprednisolone Sodium Succinate (Solu-Medrol) 125 mg IVPUSH Q6H [facility] Last Admin: 05/16/18 09:29 Dose: 125 mg Miscellaneous Information (Remove Patch) 1 ea TRDERM DAILY [facility] Last Admin: 05/16/18 09:29 Dose: Not Given Nicotine (Habitrol) 21 mg TRDERM DAILY [facility] Last Admin: 05/16/18 09:30 Dose: Not Given Sodium Chloride (Saline Flush) 10 ml FLUSH ASDIRECTED PRN PRN Reason: Keep Vein Open Temazepam (Restoril) 7.5 mg PO BEDTIME PRN PRN Reason: Sleep Discontinued Medications Albuterol (Proventil Neb Soln) 2.5 mg NEB ONETIME ONE Stop: 05/14/18 16:40 Last Admin: 05/14/18 16:43 Dose: 2.5 mg Albuterol (Proventil Neb Soln) 7.5 mg NEB ONETIME STA Stop: 05/14/18 17:02 Last Admin: 05/14/18 17:16 Dose: 7.5 mg Albuterol/Ipratropium (Duoneb 3.0-0.5 Mg/3 Ml) 3 ml NEB ONETIME ONE Stop: 05/14/18 16:16 Last Admin: 05/14/18 16:26 Dose: 3 ml Sodium Chloride (Normal Saline) 1,000 mls @ 999 mls/hr IV ONETIME ONE Stop: 05/15/18 08:08 Last Admin: 05/15/18 07:18 Dose: 999 mls/hr Pneumococcal Polyvalent Vaccine (Pneumovax 23) 0.5 ml IM .ONCE ONE Stop: 05/16/18 09:01 Prednisone (Prednisone) 60 mg PO ONETIME STA Stop: 05/14/18 16:17 Last Admin: 05/14/18 16:41 Dose: 60 mg - Exam Quality Assessment: DVT Prophylaxis General: Alert, Oriented, Cooperative, No Acute Distress HEENT: Pupils Equal, Pupils Reactive, EOMI Neck: Trachea Midline, No JVD Lungs: Normal Respiratory Effort, Decreased Breath Sounds, Wheezing (improved) Cardiovascular: Regular Rate, Regular Rhythm GI/Abdominal Exam: Normal Bowel Sounds, Soft, Non-Tender, No Organomegaly, No Distention (Female) Exam: Deferred Back Exam: Normal Inspection Extremities: Normal Inspection, Non-Tender, No Pedal Edema, Normal Capillary Refill Skin: Warm Neurological: No New Focal Deficit, Normal Speech Psy/Mental Status: Alert, Normal Affect, Normal Mood - Problem List Review Problem List Initiated/Reviewed/Updated: Yes - My Orders Last 24 Hours: My Active Orders 05/16/18 09:47 OCCULT BLOOD SCREEN [OP] Routine 05/16/18 14:00 Chest 2V [CR] Routine - Plan Plan:: Impression: Acute exacerbation of Asthma Failed outpatient treatment for bronchitis Tobacco dependence-->discussed tobacco cessation, has not committed to stop, will follow up Query PNA-->CXR to be repeated on 05/16/18 Sepsis-->criteria for sepsis Morbid obesity-->needs polysomnography study; re: sleep apnea as OP. Query thyroid function Plan: Check TSH Tobacco cessation Nebs scheduled/prn Levaquin IV Steroids IV-->decrease to 80 mg Q 6H Peak Flow Meter Droplet isolation PNA work up Sepsis work up IVF-->0.9 NS, 1 liter bolus, run at 150 cc/hr Dietary consult-->weight loss Consult PT/OT Sleep apnea eval as OP. DVT/GI prophylaxis
[2018-05-16] MEDS ORDERED: Ipratropium 0.02% 0.5 MG/2.5 ML Neb Soln NEB PRN (13:04)
[2018-05-16] MEDS ORDERED: guaiFENesin/Dextromethorphan 100-10 MG/5 ML Soln 5 ML Cup PO PRN (13:05)
[2018-05-16] MEDS: Magnesium Oxide 400 MG Tab PO SCH (15:31)
[2018-05-16] MEDS ORDERED: Furosemide 20 MG/2 ML VIAL IVPUSH ONE (18:59)
[2018-05-16] MEDS: Saccharomyces Boulardii (Probiotic) 250 MG Cap PO SCH (21:10)
[2018-05-16] MEDS: Levofloxacin/Dextrose 5%-Water 750 MG in Premix Bag 1 BAG IV SCH (21:15)
[2018-05-17] MEDS: methylPREDNISolone Sodium Succinate 125 MG/2 ML SDV IVPUSH SCH ×4 (03:10→21:36)
[2018-05-17] MEDS: Albuterol/Ipratropium 3.0-0.5 MG/3 ML Neb Soln NEB SCH ×4 (05:12→20:08)
--- NOTE | 2018-05-17 07:13 | CR ---
Chest: Two views of the chest were obtained. Comparison: Prior chest x-ray of 05/14/18. Heart size and mediastinum are within normal limits. Lung markings are mildly increased which appear fairly stable from previous exam. New area of atelectasis seen within the left base. Lungs otherwise are clear. Bony structures appear within normal limits for the patient's age. Impression: 1. Increased lung markings which appear fairly stable from prior exam. 2. New area of left basilar atelectasis. Diagnostic code #3 I agree with preliminary report issued by [facility] ([facility] preliminary report dictated on 05/16/18, 4:16 PM Central Time)
[2018-05-17] MEDS: Magnesium Oxide 400 MG Tab PO SCH (08:48)
[2018-05-17] MEDS: Saccharomyces Boulardii (Probiotic) 250 MG Cap PO SCH ×2 (08:48→21:35)
[2018-05-17] MEDS: Nicotine 21 MG/24 Hr Patch TRDERM SCH (08:49)
[2018-05-17] MEDS: Remove Patch **NICOTINE TRDERM SCH (08:49)
[2018-05-17] MEDS: Enoxaparin 40 MG/0.4 ML Syringe SUBCUT SCH (09:34)
--- NOTE | 2018-05-17 14:16 | CT ---
CT chest Technique: Multiple axial sections through the chest were obtained. Intravenous contrast was not utilized. Comparison: Prior chest x-ray of 05/16/18. Findings: Mediastinum and hilar regions show no adenopathy or mass. No pericardial thickening is seen. Nodule is identified within the right breast which has Hounsfield unit measurements of a cyst measuring about 2 cm. Fatty infiltration is seen within the liver. Subcutaneous lesion is partially visualized within the posterolateral back on the right side measuring 2.8 cm. This is most likely a benign lesion. Patchy areas of parenchymal density are seen within both upper lungs which may represent areas of pneumonia either atypical or typical. Lower lungs are clear. No pleural effusions are seen. Bone window settings were reviewed which show no acute abnormality. Impression: 1. Patchy increased density within both upper lungs which may represent pneumonia either typical or atypical. Please correlate with the patient's symptoms. 2. Other incidental findings as noted above. Diagnostic code #3
--- NOTE | 2018-05-17 15:35 | PCM.PN ---
- General Info Date of Service: 05/17/18 Admission Dx/Problem (Free Text): Admission Diagnosis/Problem Admission Diagnosis/Problem Hypoxia Subjective Update: In to see Lorie. She is sitting up in bed. She states she is feeling much better , but still has a slight cough with some yellow-green sputum. She is doing well with her IS, is able to get to the goal at least once per day. She is doing well with PT and has been ambulating with them as well as climbing steps. Good appetite. CT showed increased infiltrate- will continue IV abx. Will also get sputum culture. No other concerns from nursing. Functional Status: Reports: Pain Controlled, Tolerating Diet, Ambulating, Urinating - Review of Systems General: Reports: No Symptoms. Denies: Fever, Chills HEENT: Reports: No Symptoms Pulmonary: Reports: Shortness of Breath (exertion only), Cough, Sputum Cardiovascular: Reports: Dyspnea on Exertion. Denies: Chest Pain, Edema Gastrointestinal: Reports: No Symptoms. Denies: Abdominal Pain, Diarrhea, Nausea, Vomiting Genitourinary: Reports: No Symptoms. Denies: Dysuria, Frequency, Burning, Pain , Urgency Musculoskeletal: Reports: No Symptoms Skin: Reports: No Symptoms Neurological: Reports: No Symptoms Psychiatric: Reports: No Symptoms - Patient Data Vitals - Most Recent: Last Vital Signs Temp 97.5 F 05/17/18 07:36 Pulse 92 05/17/18 07:36 Resp 18 05/17/18 07:36 BP 137/74 05/17/18 07:36 Pulse Ox 91 L 05/17/18 15:03 Weight - Most Recent: 291 lb 6.4 oz I&O - Last 24 Hours: Intake & Output 05/17/18 05/17/18 05/17/18 06:59 14:59 22:59 Intake Total 350 340 Output Total 1800 Balance -1450 340 Lab Results Last 24 Hours: Laboratory Results - last 24 hr 05/16/18 05/17/18 05/17/18 Range/Units 15:49 05:50 05:50 WBC (3.98-10.04) K/mm3 RBC (3.98-5.22) M/mm3 Hgb (11.2-15.7) gm/L Hct (34.1-44.9) % MCV (79.4-94.8) fl MCH (25.6-32.2) pg MCHC (32.2-35.5) g/dl RDW Std Deviation (36.4-46.3) fL Plt Count (182-369) K/mm3 MPV (9.4-12.3) fl Neut % (Auto) (34.0-71.1) % Lymph % (Auto) (19.3-51.7) % [place] % (Auto) (4.7-12.5) % Eos % (Auto) (0.7-5.8) Baso % (Auto) (0.1-1.2) % Neut # (Auto) (1.56-6.13) K/mm3 Lymph # (Auto) (1.18-3.74) K/mm3 [place] # (Auto) (0.24-0.36) K/mm3 Eos # (Auto) (0.04-0.36) K/mm3 Baso # (Auto) (0.01-0.08) K/mm3 Manual Slide Review Sodium (136-145) mEq/L Potassium (3.5-5.1) mEq/L Chloride (98-107) mEq/L Carbon Dioxide (21-32) mEq/L Anion Gap (5-15) BUN (7-18) mg/dL Creatinine (0.55-1.02) mg/dL Est Cr Clr Drug Dosing mL/min Estimated GFR (MDRD) (>60) mL/min BUN/Creatinine Ratio (14-18) Glucose (74-106) mg/dL Lactic Acid 2.4 H (0.4-2.0) mmol/L Calcium (8.5-10.1) mg/dL Magnesium 2.4 (1.8-2.4) mg/dl C-Reactive Protein 0.6 (<1.0) mg/dL Urine Color Yellow (Yellow) Urine Appearance Clear (Clear) Urine pH 6.5 (5.0-8.0) Ur Specific [place] 1.025 (1.005-1.030) Urine Protein Negative (Negative) Urine Glucose (UA) 2+ H (Negative) Urine Ketones Negative (Negative) Urine Occult Blood Negative (Negative) Urine Nitrite Negative (Negative) Urine Bilirubin Negative (Negative) Urine Urobilinogen 0.2 (0.2-1.0) Ur Leukocyte Esterase Negative (Negative) Urine RBC 0-5 (0-5) /hpf Urine WBC 0-5 (0-5) /hpf Ur Epithelial Cells 0-5 (0-5) /hpf Urine Bacteria Not seen (FEW) /hpf Urine Mucus Not seen (FEW) /hpf 05/17/18 05/17/18 Range/Units 10:55 10:55 WBC 22.99 H (3.98-10.04) K/mm3 RBC 5.51 H (3.98-5.22) M/mm3 Hgb 15.2 (11.2-15.7) gm/L Hct 46.7 H (34.1-44.9) % MCV 84.8 (79.4-94.8) fl MCH 27.6 (25.6-32.2) pg MCHC 32.5 (32.2-35.5) g/dl RDW Std Deviation 47.9 H (36.4-46.3) fL Plt Count 332 (182-369) K/mm3 MPV 10.4 (9.4-12.3) fl Neut % (Auto) 83.4 H (34.0-71.1) % Lymph % (Auto) 9.7 L (19.3-51.7) % Bucks % (Auto) 5.4 (4.7-12.5) % Eos % (Auto) 0 L (0.7-5.8) Baso % (Auto) 0.2 (0.1-1.2) % Neut # (Auto) 19.19 H (1.56-6.13) K/mm3 Lymph # (Auto) 2.24 (1.18-3.74) K/mm3 [place] # (Auto) 1.23 H (0.24-0.36) K/mm3 Eos # (Auto) 0.00 L (0.04-0.36) K/mm3 Baso # (Auto) 0.04 (0.01-0.08) K/mm3 Manual Slide Review Abnormal smear Sodium 137 (136-145) mEq/L Potassium 4.2 (3.5-5.1) mEq/L Chloride 101 (98-107) mEq/L Carbon Dioxide 26 (21-32) mEq/L Anion Gap 14.2 (5-15) BUN 19 H (7-18) mg/dL Creatinine 1.0 (0.55-1.02) mg/dL Est Cr Clr Drug Dosing 58.54 mL/min Estimated GFR (MDRD) 58 (>60) mL/min BUN/Creatinine Ratio 19.0 H (14-18) Glucose 351 H (74-106) mg/dL Lactic Acid (0.4-2.0) mmol/L Calcium 9.1 (8.5-10.1) mg/dL Magnesium 2.5 H (1.8-2.4) mg/dl C-Reactive Protein (<1.0) mg/dL Urine Color (Yellow) Urine Appearance (Clear) Urine pH (5.0-8.0) Ur Specific [place] (1.005-1.030) Urine Protein (Negative) Urine Glucose (UA) (Negative) Urine Ketones (Negative) Urine Occult Blood (Negative) Urine Nitrite (Negative) Urine Bilirubin (Negative) Urine Urobilinogen (0.2-1.0) Ur Leukocyte Esterase (Negative) Urine RBC (0-5) /hpf Urine WBC (0-5) /hpf Ur Epithelial Cells (0-5) /hpf Urine Bacteria (FEW) /hpf Urine Mucus (FEW) /hpf Boo Results Last 24 Hours: Microbiology 05/15/18 07:50 Aerobic Blood Culture - Preliminary Blood - Venous - Lab Draw NO GROWTH AFTER 2 DAYS Anaerobic Blood Culture - Preliminary NO GROWTH AFTER 2 DAYS 05/15/18 07:35 Aerobic Blood Culture - Preliminary Blood - Venous NO GROWTH AFTER 2 DAYS Anaerobic Blood Culture - Preliminary NO GROWTH AFTER 2 DAYS 05/16/18 15:49 Urine Culture - Preliminary Urine, Clean Catch NO GROWTH AFTER 1 DAY Med Orders - Current: Current Medications Acetaminophen (Tylenol) 650 mg PO Q6H PRN PRN Reason: Pain Albuterol/Ipratropium (Duoneb 3.0-0.5 Mg/3 Ml) 3 ml NEB QIDRT [facility] Last Admin: 05/17/18 15:03 Dose: 3 ml Benzonatate (Tessalon Perles) 100 mg PO Q8HR PRN PRN Reason: Cough Last Admin: 05/15/18 00:45 Dose: 100 mg Enoxaparin Sodium (Lovenox) 40 mg SUBCUT DAILY [facility] Last Admin: 05/17/18 09:34 Dose: 40 mg Guaifenesin/Phenylephrine HCl (Robitussin Dm) 15 ml PO Q6H PRN PRN Reason: Cough Levofloxacin/Dextrose 750 mg/ (Premix) 150 mls @ 100 mls/hr IV Q24H [facility] Stop: 05/18/18 02:00 Last Admin: 05/16/18 21:15 Dose: 100 mls/hr Ipratropium [place] (Atrovent) 0.5 mg NEB Q8HRRT PRN PRN Reason: Shortness of Breath Levofloxacin (Levaquin) 750 mg PO Q24H [facility] Magnesium Oxide (Magnesium Oxide) 400 mg PO DAILY [facility] Last Admin: 05/17/18 08:48 Dose: 400 mg Methylprednisolone Sodium Succinate (Solu-Medrol) 80 mg IVPUSH Q6H [facility] Last Admin: 05/17/18 15:09 Dose: 80 mg Miscellaneous Information (Remove Patch) 1 ea TRDERM DAILY [facility] Last Admin: 05/17/18 08:49 Dose: Not Given Nicotine (Habitrol) 21 mg TRDERM DAILY [facility] Last Admin: 05/17/18 08:49 Dose: Not Given Saccharomyces Boulardii (Florastor) 250 mg PO BID [facility] Last Admin: 05/17/18 08:48 Dose: 250 mg Sodium Chloride (Saline Flush) 10 ml FLUSH ASDIRECTED PRN PRN Reason: Keep Vein Open Temazepam (Restoril) 7.5 mg PO BEDTIME PRN PRN Reason: Sleep Discontinued Medications Albuterol (Proventil Neb Soln) 2.5 mg NEB ONETIME ONE Stop: 05/14/18 16:40 Last Admin: 05/14/18 16:43 Dose: 2.5 mg Albuterol (Proventil Neb Soln) 7.5 mg NEB ONETIME STA Stop: 05/14/18 17:02 Last Admin: 05/14/18 17:16 Dose: 7.5 mg Albuterol (Proventil Neb Soln) 2.5 mg NEB Q4HRRT PRN PRN Reason: shortness of breath Albuterol/Ipratropium (Duoneb 3.0-0.5 Mg/3 Ml) 3 ml NEB ONETIME ONE Stop: 05/14/18 16:16 Last Admin: 05/14/18 16:26 Dose: 3 ml Albuterol/Ipratropium (Duoneb 3.0-0.5 Mg/3 Ml) 3 ml NEB Q6HRRT [facility] Last Admin: 05/16/18 15:12 Dose: Not Given Furosemide (Lasix) 20 mg IVPUSH ONETIME ONE Stop: 05/16/18 19:00 Last Admin: 05/16/18 19:45 Dose: 20 mg Sodium Chloride (Normal Saline) 1,000 mls @ 999 mls/hr IV ONETIME ONE Stop: 05/15/18 08:08 Last Admin: 05/15/18 07:18 Dose: 999 mls/hr Sodium Chloride (Normal Saline) 1,000 mls @ 150 mls/hr IV ASDIRECTED [facility] Last Admin: 05/16/18 04:05 Dose: 150 mls/hr Methylprednisolone Sodium Succinate (Solu-Medrol) 125 mg IVPUSH Q6H [facility] Last Admin: 05/16/18 09:29 Dose: 125 mg Pneumococcal Polyvalent Vaccine (Pneumovax 23) 0.5 ml IM .ONCE ONE Stop: 05/16/18 09:01 Prednisone (Prednisone) 60 mg PO ONETIME STA Stop: 05/14/18 16:17 Last Admin: 05/14/18 16:41 Dose: 60 mg - Exam Quality Assessment: DVT Prophylaxis General: Alert, Oriented, Cooperative, No Acute Distress HEENT: Pupils Equal, Pupils Reactive, EOMI, Mucous Membr. Moist/[place] Neck: Supple Lungs: Normal Respiratory Effort, Wheezing (throughout lung king) Cardiovascular: Regular Rate, Regular Rhythm GI/Abdominal Exam: Normal Bowel Sounds, Soft, Non-Tender, No Organomegaly, No Distention, No Abnormal Bruit, No Mass, Pelvis Stable (Female) Exam: Deferred Back Exam: Normal Inspection, Full Range of Motion Extremities: Normal Inspection, Normal Range of Motion, Non-Tender, No Pedal Edema, Normal Capillary Refill Peripheral Pulses: 2+: Posterior Tibial (L), Posterior Tibial (R), Dorsalis Pedis (L), Dorsalis Pedis (R) Skin: Warm, Dry, Intact Neurological: No New Focal Deficit Psy/Mental Status: Alert, Normal Affect, Normal Mood - Problem List & Annotations (1) Pneumonia SNOMED Code(s): 716824398 Code(s): J18.9 - PNEUMONIA, UNSPECIFIED ORGANISM Status: Acute Priority: High Current Visit: Yes Qualifiers: Pneumonia type: due to unspecified organism Laterality: left Lung location: lower lobe of lung Qualified Code(s): J18.1 - Lobar pneumonia, unspecified organism (2) Asthma exacerbation SNOMED Code(s): 213492234 Code(s): J45.901 - UNSPECIFIED ASTHMA WITH (ACUTE) EXACERBATION Status: Acute Priority: High Current Visit: Yes Qualifiers: Asthma severity: unspecified severity Asthma persistence: unspecified Qualified Code(s): J45.901 - Unspecified asthma with (acute) exacerbation (3) Morbidly obese SNOMED Code(s): 371165439 Code(s): E66.01 - MORBID (SEVERE) OBESITY DUE TO EXCESS CALORIES Status: Chronic Priority: Low Current Visit: Yes (4) Tobacco dependence due to cigarettes SNOMED Code(s): 72233860440400874 Code(s): F17.210 - NICOTINE DEPENDENCE, CIGARETTES, UNCOMPLICATED Status: Chronic Priority: High Current Visit: Yes - Problem List Review Problem List Initiated/Reviewed/Updated: Yes - Plan Plan:: I/P: Acute exacerbation of Asthma * Diagnosed in 11th grade, 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 * SOB, wheezing, Peak flow 250 (goal is 400-500) * Duonebs and Prednisone given in ED * Albuterol treatments PRN * Solumedrol 80mg Q6H * O2 PRN * Peak flow meter * RT consult * Monitor Query PNA vs Bronchitis * Risk factor: Failed outpatient treatment for bronchitis 05/10/18 * Cough with yellow and green sputum, nasal congestion * CXR in ED--> mild increased central lung markings most likely bronchitis * Repeat CXR --> increased lung markings appear stable; new left basilar atelectasis * Chest CT--> patchy increased density within both upper lungs which may represent PNA either typical or atypical * Repeat CXR in 2 days * Sputum culture pending * Levaquin IV started--> Add Azithromycin today * Mycoplasma negative * S. pneumo, RVP pending * RT/IS/Acapella/Duonebs * Tesslorae melara and Dionicioitussin DM PRN * Sepsis workup * Lactic Acid: 2.2-->3.7--> 2.4 * Blood Cultures--> No growth * Urine Cultures--> No growth * IVF--> D/C'd Tobacco dependence * Smokes 1ppd * Discussed tobacco cessation, has not committed to stop, will follow up * Habitrol Chronic: Asthma Morbid obesity * BMI 48.5 * Needs polysomnography study--> re: sleep apnea as OP * Dietary consult-->weight loss Query thyroid function--> pending labs Plan: Transferred to [facility] Droplet isolation Tobacco cessation Home medications Routine AM labs Consult PT/OT/RT Consult Psych for motivation issues DVT/GI prophylaxis: Lovenox 40mg/ Pepcid 20mg Code status: Full Code; PCP: Leona Deleon Recommend Sleep apnea eval as outpt
[2018-05-17] MEDS ORDERED: Azithromycin 500 MG in Sodium Chloride 0.9% 250 ML IV SCH (16:00)
[2018-05-17] MEDS ORDERED: Famotidine 20 MG Tab PO SCH (19:00)
[2018-05-17] MEDS: Levofloxacin/Dextrose 5%-Water 750 MG in Premix Bag 1 BAG IV SCH (21:36)
[2018-05-18] MEDS: methylPREDNISolone Sodium Succinate 125 MG/2 ML SDV IVPUSH SCH ×2 (03:14→08:10)
[2018-05-18] MEDS: Albuterol/Ipratropium 3.0-0.5 MG/3 ML Neb Soln NEB SCH ×4 (05:13→20:07)
[2018-05-18] MEDS: Famotidine 20 MG Tab PO SCH ×2 (08:10→20:39)
[2018-05-18] MEDS: Magnesium Oxide 400 MG Tab PO SCH (08:10)
[2018-05-18] MEDS: Saccharomyces Boulardii (Probiotic) 250 MG Cap PO SCH ×2 (08:10→20:39)
[2018-05-18] MEDS: Enoxaparin 40 MG/0.4 ML Syringe SUBCUT SCH (08:11)
[2018-05-18] MEDS: Nicotine 21 MG/24 Hr Patch TRDERM SCH (08:11)
[2018-05-18] MEDS: Remove Patch **NICOTINE TRDERM SCH (08:11)
[2018-05-18] MEDS ORDERED: Sodium Chloride 0.9% 1,000 ML IV ONE (10:48)
[2018-05-18] MEDS: Sodium Chloride 0.9% 1,000 ML IV SCH ×2 (12:13→20:31)
--- NOTE | 2018-05-18 17:15 | PCM.PN ---
- General Info Date of Service: 05/18/18 Admission Dx/Problem (Free Text): Admission Diagnosis/Problem Admission Diagnosis/Problem Hypoxia Subjective Update: In to see Lorie. She is sitting up in bed. She states she is feeling much better , but still has a slight cough with some blood-tinged sputum. I explained this is likely due to her coughing that has irritated the airways but to inform us if it gets worse or she begins coughing up only blood. She is doing better with her IS, was recommended she use it on commercial breaks while watching TV. She is also ambulating before and after meals. Good appetite. Still awaiting RVP and sputum culture. For now will continue the Levaquin and hold the Azithromycin. Lactic acid was elevated again, although she does not look septic. She was given 1L bolus NS and started on IVF again per sepsis protocol. Lactic acid to be re-ordered around 5 pm. No other concerns from nursing. Functional Status: Reports: Pain Controlled, Tolerating Diet, Ambulating, Urinating - Review of Systems General: Reports: No Symptoms. Denies: Fever, Chills HEENT: Reports: No Symptoms Pulmonary: Reports: Cough (improving), Sputum (blood-tinged). Denies: Shortness of Breath, Wheezing Cardiovascular: Reports: Dyspnea on Exertion, Orthopnea (feels she may have sleep apnea, has never been evaluated). Denies: Chest Pain, Palpitations, Edema , Lightheadedness Gastrointestinal: Reports: No Symptoms. Denies: Abdominal Pain, Constipation, Diarrhea, Nausea, Vomiting Genitourinary: Reports: No Symptoms. Denies: Dysuria, Frequency, Burning, Pain , Urgency Musculoskeletal: Reports: No Symptoms Skin: Reports: No Symptoms Neurological: Reports: No Symptoms. Denies: Dizziness, Headache, Difficulty Walking, Weakness Psychiatric: Reports: No Symptoms - Patient Data Vitals - Most Recent: Last Vital Signs Temp 99.7 F 05/18/18 15:47 Pulse 93 05/18/18 15:47 Resp 16 05/18/18 15:47 BP 120/73 05/18/18 15:47 Pulse Ox 92 L 05/18/18 15:52 Weight - Most Recent: 291 lb 2 oz I&O - Last 24 Hours: Intake & Output 05/18/18 05/18/18 05/18/18 06:59 14:59 22:59 Intake Total 563 015 8353 Output Total 3000 1500 Balance -8 420 941 Lab Results Last 24 Hours: Laboratory Results - last 24 hr 05/15/18 05/17/18 05/18/18 Range/Units 05:50 10:55 05:55 WBC (3.98-10.04) K/mm3 RBC (3.98-5.22) M/mm3 Hgb (11.2-15.7) gm/L Hct (34.1-44.9) % MCV (79.4-94.8) fl MCH (25.6-32.2) pg MCHC (32.2-35.5) g/dl RDW Std Deviation (36.4-46.3) fL Plt Count (182-369) K/mm3 MPV (9.4-12.3) fl Neut % (Auto) (34.0-71.1) % Lymph % (Auto) (19.3-51.7) % [place] % (Auto) (4.7-12.5) % Eos % (Auto) (0.7-5.8) Baso % (Auto) (0.1-1.2) % Neut # (Auto) (1.56-6.13) K/mm3 Lymph # (Auto) (1.18-3.74) K/mm3 [place] # (Auto) (0.24-0.36) K/mm3 Eos # (Auto) (0.04-0.36) K/mm3 Baso # (Auto) (0.01-0.08) K/mm3 Manual Slide Review Sodium (136-145) mEq/L Potassium (3.5-5.1) mEq/L Chloride (98-107) mEq/L Carbon Dioxide (21-32) mEq/L Anion Gap (5-15) BUN (7-18) mg/dL Creatinine (0.55-1.02) mg/dL Est Cr Clr Drug Dosing mL/min Estimated GFR (MDRD) (>60) mL/min BUN/Creatinine Ratio (14-18) Glucose (74-106) mg/dL Lactic Acid 2.6 H (0.4-2.0) mmol/L Calcium (8.5-10.1) mg/dL Magnesium (1.8-2.4) mg/dl C-Reactive Protein (<1.0) mg/dL C-React Prot High Sens 22.26 mg/L Free T4 0.94 (0.76-1.46) ng/dL TSH 3rd Generation 0.628 (0.358-3.74) uIU/mL 05/18/18 05/18/18 05/18/18 Range/Units 05:55 05:55 05:55 WBC 17.53 H (3.98-10.04) K/mm3 RBC 5.44 H (3.98-5.22) M/mm3 Hgb 15.0 (11.2-15.7) gm/L Hct 45.5 H (34.1-44.9) % MCV 83.6 (79.4-94.8) fl MCH 27.6 (25.6-32.2) pg MCHC 33.0 (32.2-35.5) g/dl RDW Std Deviation 46.0 (36.4-46.3) fL Plt Count 307 (182-369) K/mm3 MPV 10.1 (9.4-12.3) fl Neut % (Auto) 80.5 H (34.0-71.1) % Lymph % (Auto) 12.9 L (19.3-51.7) % [place] % (Auto) 4.2 L (4.7-12.5) % Eos % (Auto) 0 L (0.7-5.8) Baso % (Auto) 0.2 (0.1-1.2) % Neut # (Auto) 14.12 H (1.56-6.13) K/mm3 Lymph # (Auto) 2.27 (1.18-3.74) K/mm3 [place] # (Auto) 0.73 H (0.24-0.36) K/mm3 Eos # (Auto) 0.00 L (0.04-0.36) K/mm3 Baso # (Auto) 0.03 (0.01-0.08) K/mm3 Manual Slide Review Abnormal smear Sodium 136 (136-145) mEq/L Potassium 4.7 (3.5-5.1) mEq/L Chloride 101 (98-107) mEq/L Carbon Dioxide 29 (21-32) mEq/L Anion Gap 10.7 (5-15) BUN 19 H (7-18) mg/dL Creatinine 0.9 (0.55-1.02) mg/dL Est Cr Clr Drug Dosing 65.05 mL/min Estimated GFR (MDRD) > 60 (>60) mL/min BUN/Creatinine Ratio 21.1 H (14-18) Glucose 286 H (74-106) mg/dL Lactic Acid (0.4-2.0) mmol/L Calcium 8.9 (8.5-10.1) mg/dL Magnesium 2.4 (1.8-2.4) mg/dl C-Reactive Protein < 0.2 (<1.0) mg/dL C-React Prot High Sens mg/L Free T4 (0.76-1.46) ng/dL TSH 3rd Generation (0.358-3.74) uIU/mL 05/18/18 Range/Units 11:00 WBC (3.98-10.04) K/mm3 RBC (3.98-5.22) M/mm3 Hgb (11.2-15.7) gm/L Hct (34.1-44.9) % MCV (79.4-94.8) fl MCH (25.6-32.2) pg MCHC (32.2-35.5) g/dl RDW Std Deviation (36.4-46.3) fL Plt Count (182-369) K/mm3 MPV (9.4-12.3) fl Neut % (Auto) (34.0-71.1) % Lymph % (Auto) (19.3-51.7) % [place] % (Auto) (4.7-12.5) % Eos % (Auto) (0.7-5.8) Baso % (Auto) (0.1-1.2) % Neut # (Auto) (1.56-6.13) K/mm3 Lymph # (Auto) (1.18-3.74) K/mm3 [place] # (Auto) (0.24-0.36) K/mm3 Eos # (Auto) (0.04-0.36) K/mm3 Baso # (Auto) (0.01-0.08) K/mm3 Manual Slide Review Sodium (136-145) mEq/L Potassium (3.5-5.1) mEq/L Chloride (98-107) mEq/L Carbon Dioxide (21-32) mEq/L Anion Gap (5-15) BUN (7-18) mg/dL Creatinine (0.55-1.02) mg/dL Est Cr Clr Drug Dosing mL/min Estimated GFR (MDRD) (>60) mL/min BUN/Creatinine Ratio (14-18) Glucose (74-106) mg/dL Lactic Acid 3.3 H (0.4-2.0) mmol/L Calcium (8.5-10.1) mg/dL Magnesium (1.8-2.4) mg/dl C-Reactive Protein (<1.0) mg/dL C-React Prot High Sens mg/L Free T4 (0.76-1.46) ng/dL TSH 3rd Generation (0.358-3.74) uIU/mL Boo Results Last 24 Hours: Microbiology 05/18/18 13:38 Gram Stain - Final Sputum - Expectorated 05/18/18 09:55 Gram Stain - Final Sputum - Expectorated Sputum Culture - Final 05/16/18 15:49 Urine Culture - Final Urine, Clean Catch MIXED SARI SUGGESTIVE OF CONTAMINATION. 05/15/18 07:50 Aerobic Blood Culture - Preliminary Blood - Venous - Lab Draw NO GROWTH AFTER 3 DAYS Anaerobic Blood Culture - Preliminary NO GROWTH AFTER 3 DAYS 05/15/18 07:35 Aerobic Blood Culture - Preliminary Blood - Venous NO GROWTH AFTER 3 DAYS Anaerobic Blood Culture - Preliminary NO GROWTH AFTER 3 DAYS 05/15/18 06:00 Streptococcus pneumoniae Antigen (M - Final Urine Med Orders - Current: Current Medications Acetaminophen (Tylenol) 650 mg PO Q6H PRN PRN Reason: Pain Albuterol/Ipratropium (Duoneb 3.0-0.5 Mg/3 Ml) 3 ml NEB QIDRT [facility] Last Admin: 05/18/18 15:51 Dose: 3 ml Benzonatate (Tessalon Perles) 100 mg PO Q8HR PRN PRN Reason: Cough Last Admin: 05/15/18 00:45 Dose: 100 mg Enoxaparin Sodium (Lovenox) 40 mg SUBCUT DAILY [facility] Last Admin: 05/18/18 08:11 Dose: 40 mg Famotidine (Pepcid) 20 mg PO BID [facility] Last Admin: 05/18/18 08:10 Dose: 20 mg Guaifenesin/Phenylephrine HCl (Robitussin Dm) 15 ml PO Q6H PRN PRN Reason: Cough Sodium Chloride (Normal Saline) 1,000 mls @ 125 mls/hr IV ASDIRECTED [facility] Last Admin: 05/18/18 12:13 Dose: 125 mls/hr Ipratropium [place] (Atrovent) 0.5 mg NEB Q8HRRT PRN PRN Reason: Shortness of Breath Levofloxacin (Levaquin) 750 mg PO Q24H [facility] Magnesium Oxide (Magnesium Oxide) 400 mg PO DAILY [facility] Last Admin: 05/18/18 08:10 Dose: 400 mg Methylprednisolone Sodium Succinate (Solu-Medrol) 80 mg IVPUSH Q12H [facility] Miscellaneous Information (Remove Patch) 1 ea TRDERM DAILY [facility] Last Admin: 05/18/18 08:11 Dose: Not Given Nicotine (Habitrol) 21 mg TRDERM DAILY [facility] Last Admin: 05/18/18 08:11 Dose: Not Given Saccharomyces Boulardii (Florastor) 250 mg PO BID [facility] Last Admin: 05/18/18 08:10 Dose: 250 mg Sodium Chloride (Saline Flush) 10 ml FLUSH ASDIRECTED PRN PRN Reason: Keep Vein Open Temazepam (Restoril) 7.5 mg PO BEDTIME PRN PRN Reason: Sleep Discontinued Medications Albuterol (Proventil Neb Soln) 2.5 mg NEB ONETIME ONE Stop: 05/14/18 16:40 Last Admin: 05/14/18 16:43 Dose: 2.5 mg Albuterol (Proventil Neb Soln) 7.5 mg NEB ONETIME STA Stop: 05/14/18 17:02 Last Admin: 05/14/18 17:16 Dose: 7.5 mg Albuterol (Proventil Neb Soln) 2.5 mg NEB Q4HRRT PRN PRN Reason: shortness of breath Albuterol/Ipratropium (Duoneb 3.0-0.5 Mg/3 Ml) 3 ml NEB ONETIME ONE Stop: 05/14/18 16:16 Last Admin: 05/14/18 16:26 Dose: 3 ml Albuterol/Ipratropium (Duoneb 3.0-0.5 Mg/3 Ml) 3 ml NEB Q6HRRT [facility] Last Admin: 05/16/18 15:12 Dose: Not Given Famotidine (Pepcid) 20 mg PO DAILY [facility] Last Admin: 05/17/18 21:35 Dose: 20 mg Furosemide (Lasix) 20 mg IVPUSH ONETIME ONE Stop: 05/16/18 19:00 Last Admin: 05/16/18 19:45 Dose: 20 mg Levofloxacin/Dextrose 750 mg/ (Premix) 150 mls @ 100 mls/hr IV Q24H JENN Stop: 05/18/18 02:00 Last Admin: 05/17/18 21:36 Dose: 100 mls/hr Sodium Chloride (Normal Saline) 1,000 mls @ 999 mls/hr IV ONETIME ONE Stop: 05/15/18 08:08 Last Admin: 05/15/18 07:18 Dose: 999 mls/hr Sodium Chloride (Normal Saline) 1,000 mls @ 150 mls/hr IV ASDIRECTED [facility] Last Admin: 05/16/18 04:05 Dose: 150 mls/hr Azithromycin 500 mg/ Sodium (Chloride) 250 mls @ 250 mls/hr IV Q24H [facility] Last Admin: 05/17/18 17:15 Dose: 250 mls/hr Sodium Chloride (Normal Saline) 1,000 mls @ 999 mls/hr IV ONETIME ONE Stop: 05/18/18 11:48 Last Admin: 05/18/18 11:02 Dose: 999 mls/hr Methylprednisolone Sodium Succinate (Solu-Medrol) 125 mg IVPUSH Q6H [facility] Last Admin: 05/16/18 09:29 Dose: 125 mg Methylprednisolone Sodium Succinate (Solu-Medrol) 80 mg IVPUSH Q6H [facility] Last Admin: 05/18/18 08:10 Dose: 80 mg Pneumococcal Polyvalent Vaccine (Pneumovax 23) 0.5 ml IM .ONCE ONE Stop: 05/16/18 09:01 Prednisone (Prednisone) 60 mg PO ONETIME STA Stop: 05/14/18 16:17 Last Admin: 05/14/18 16:41 Dose: 60 mg - Exam Quality Assessment: DVT Prophylaxis. No: Supplemental Oxygen General: Alert, Oriented, Cooperative, No Acute Distress HEENT: Pupils Equal, Pupils Reactive, EOMI, Mucous Membr. Moist/[place] Neck: Supple Lungs: Normal Respiratory Effort, Wheezing (throughout lung king, improved) Cardiovascular: Regular Rate, Regular Rhythm GI/Abdominal Exam: Normal Bowel Sounds, Soft, Non-Tender, No Organomegaly, No Distention, No Abnormal Bruit, No Mass, Pelvis Stable (Female) Exam: Deferred Back Exam: Normal Inspection, Full Range of Motion Extremities: Normal Inspection, Normal Range of Motion, Non-Tender, No Pedal Edema, Normal Capillary Refill Peripheral Pulses: 3+: Posterior Tibial (L), Posterior Tibial (R), Dorsalis Pedis (L), Dorsalis Pedis (R) Skin: Warm, Dry, Intact Neurological: No New Focal Deficit Psy/Mental Status: Alert, Normal Affect, Normal Mood - Problem List & Annotations (1) Pneumonia SNOMED Code(s): 284969160 Code(s): J18.9 - PNEUMONIA, UNSPECIFIED ORGANISM Status: Acute Priority: High Current Visit: Yes Qualifiers: Pneumonia type: due to unspecified organism Laterality: left Lung location: lower lobe of lung Qualified Code(s): J18.1 - Lobar pneumonia, unspecified organism (2) Asthma exacerbation SNOMED Code(s): 210604472 Code(s): J45.901 - UNSPECIFIED ASTHMA WITH (ACUTE) EXACERBATION Status: Acute Priority: High Current Visit: Yes Qualifiers: Asthma severity: unspecified severity Asthma persistence: unspecified Qualified Code(s): J45.901 - Unspecified asthma with (acute) exacerbation (3) Morbidly obese SNOMED Code(s): 238305175 Code(s): E66.01 - MORBID (SEVERE) OBESITY DUE TO EXCESS CALORIES Status: Chronic Priority: Low Current Visit: Yes (4) Tobacco dependence due to cigarettes SNOMED Code(s): 45936002643606494 Code(s): F17.210 - NICOTINE DEPENDENCE, CIGARETTES, UNCOMPLICATED Status: Chronic Priority: High Current Visit: Yes - Problem List Review Problem List Initiated/Reviewed/Updated: Yes - My Orders Last 24 Hours: My Active Orders 05/17/18 16:37 Consult to Physician [CONS] Routine 05/17/18 16:38 Notify Provider Consults [RC] ASDIRECTED 05/17/18 18:04 RT Acapella [RESPCARE] Routine 05/18/18 09:00 Famotidine [Pepcid] 20 mg PO BID 05/18/18 09:55 CULTURE SPUTUM + SMEAR [RM] Routine 05/19/18 05:11 CXR [Chest 1V Frontal] [CR] Routine BASIC METABOLIC PANEL,BMP [CHEM] AM CBC WITH AUTO DIFF [HEME] AM MAGNESIUM [CHEM] AM 05/20/18 05:11 BASIC METABOLIC PANEL,BMP [CHEM] AM CBC WITH AUTO DIFF [HEME] AM MAGNESIUM [CHEM] AM 05/21/18 05:11 BASIC METABOLIC PANEL,BMP [CHEM] AM CBC WITH AUTO DIFF [HEME] AM MAGNESIUM [CHEM] AM 05/22/18 05:11 BASIC METABOLIC PANEL,BMP [CHEM] AM CBC WITH AUTO DIFF [HEME] AM MAGNESIUM [CHEM] AM - Plan Plan:: I/P: Acute exacerbation of Asthma * Diagnosed in 11th grade, never been to rope tier or done PFTs * SOB, wheezing, Peak flow 250 (goal is 400-500) * Duonebs and Prednisone given in ED * Albuterol treatments PRN * Solumedrol 80mg Q6H * O2 PRN * Peak flow meter * RT consult * Monitor Query PNA vs Bronchitis * Risk factor: Failed outpatient treatment for bronchitis 05/10/18 * Cough with yellow and green sputum, nasal congestion * CXR in ED--> mild increased central lung markings most likely bronchitis * Repeat CXR --> increased lung markings appear stable; new left basilar atelectasis * Chest CT--> patchy increased density within both upper lungs which may represent PNA either typical or atypical * Repeat CXR in 2 days * Sputum culture--> gram positive cocci with moderate gram negative coccobacilli ; pending culture * Levaquin IV Day 4--> Azithromycin D/C'd today * Mycoplasma and S. pneumo negative * RVP pending * RT/IS/Acapella/Duonebs * Satnam melara and Stanleysin DM PRN * Sepsis workup * Lactic Acid: 2.2-->3.7--> 2.4--> 3.3 * Blood Cultures--> No growth * U/A not impressive for UTI * IVF--> restarted per sepsis protocol Tobacco dependence * Smokes 1ppd * Discussed tobacco cessation, has not committed to stop, will follow up * Habitrol * Psych consult with Dr. Peña refused by pt Chronic: Asthma Morbid obesity * BMI 48.5 * Needs polysomnography study--> re: sleep apnea as OP * Dietary consult-->weight loss Query thyroid function--> pending labs Plan: Transferred to [facility] Tobacco cessation Home medications Routine AM labs Consult PT/OT/RT DVT/GI prophylaxis: Lovenox 40mg/ Pepcid 20mg Code status: Full Code; PCP: Leona Deleon Recommend Sleep apnea eval as outpt Likely D/C home Thursday or pending labs and clinical disposition.
[2018-05-18] MEDS: methylPREDNISolone Sodium Succinate 40 MG/1 ML SDV IVPUSH SCH (20:36)
[2018-05-18] MEDS ORDERED: Levofloxacin 750 MG Tab PO SCH (22:00)
[2018-05-19] MEDS: Sodium Chloride 0.9% 1,000 ML IV SCH (04:34)
[2018-05-19] MEDS: Albuterol/Ipratropium 3.0-0.5 MG/3 ML Neb Soln NEB SCH ×3 (05:18→15:44)
[2018-05-19] MEDS: Saccharomyces Boulardii (Probiotic) 250 MG Cap PO SCH (08:29)
[2018-05-19] MEDS: Remove Patch **NICOTINE TRDERM SCH (08:30)
[2018-05-19] MEDS: Enoxaparin 40 MG/0.4 ML Syringe SUBCUT SCH (08:30)
[2018-05-19] MEDS: Nicotine 21 MG/24 Hr Patch TRDERM SCH (08:30)
[2018-05-19] MEDS: methylPREDNISolone Sodium Succinate 40 MG/1 ML SDV IVPUSH SCH (08:30)
[2018-05-19] MEDS: Famotidine 20 MG Tab PO SCH (08:30)
[2018-05-19] MEDS: Magnesium Oxide 400 MG Tab PO SCH (08:30)
--- NOTE | 2018-05-19 08:51 | CR ---
Chest: Portable view of the chest was obtained. Comparison: Prior chest x-ray of 05/16/18. Lung markings appear slightly improved from previous chest x-ray. No acute parenchymal densities are otherwise appreciated on the chest x-ray. Heart size is slightly accentuated from portable technique. Bony structures are grossly intact. Impression: 1. Chest appears improved from prior study. No new abnormality is seen. Diagnostic code #2
--- NOTE | 2018-05-19 16:10 | PCM.DCSUM1 ---
Discharge Summary - Hospital Course HPI Initial Comments: The patient states that she has a history of asthma, diagnosed when she was in 11th grade, although she has never seen a Director Translational, and has never undergone pulmonary function tests. She states that she has had shortness of breath, wheezing, and a cough productive of yellow/dark green sputum since 05/09/2018. Her wheezing is worse if she is supine. She reports some nasal and sinus congestion for the past 2 days. She states that her throat is sore from coughing. She states that she was seen at the clinic on 05/10/2018. A chest radiograph apparently showed haziness bibasilarly. She was given a DuoNeb in the clinic, then discharged with prescriptions for doxycycline and prednisone. She does not know the dose of the prednisone, but believes it is 10 mg a day. She states that her symptoms have not improved. The patient states that she has albuterol by nebulizer at home. She states that she will take a nap every hour at night when she is symptomatic, then another in the morning, and another around 13:00 in the afternoon. She states that she has a prescription for an albuterol MDI, but has not picked it up. She does not have a peak flow meter or space chamber at home. Despite the patient's history of asthma, she continues to smoke one pack of cigarettes per day, although states that she has not smoked any over the past few days. The patient has not been diagnosed with obstructive sleep apnea, however, she states that her twin sister has it, and the patient presumes that she has, as she is morbidly obese. The patient's PCP is Leona Deleon. Diagnosis: Stroke: No - Discharge Data Discharge Date: 05/19/18 (ADMIT 05/14/18) Discharge Disposition: Home, Self-Care 01 Condition: Good - Discharge Diagnosis/Problem(s) (1) Pneumonia SNOMED Code(s): 939656538 ICD Code: J18.9 - PNEUMONIA, UNSPECIFIED ORGANISM Status: Acute Priority : High Current Visit: Yes Qualifiers: Pneumonia type: due to unspecified organism Laterality: left Lung location: lower lobe of lung Qualified Code(s): J18.1 - Lobar pneumonia, unspecified organism (2) Asthma exacerbation SNOMED Code(s): 067211452 ICD Code: J45.901 - UNSPECIFIED ASTHMA WITH (ACUTE) EXACERBATION Status: Acute Priority: High Current Visit: Yes Qualifiers: Asthma severity: unspecified severity Asthma persistence: unspecified Qualified Code(s): J45.901 - Unspecified asthma with (acute) exacerbation (3) Morbidly obese SNOMED Code(s): 414936615 ICD Code: E66.01 - MORBID (SEVERE) OBESITY DUE TO EXCESS CALORIES Status: Chronic Priority: Low Current Visit: Yes (4) Tobacco dependence due to cigarettes SNOMED Code(s): 14237724634851933 ICD Code: F17.210 - NICOTINE DEPENDENCE, CIGARETTES, UNCOMPLICATED Status: Chronic Priority: High Current Visit: Yes (5) Diabetes SNOMED Code(s): 20646584 ICD Code: E11.9 - TYPE 2 DIABETES MELLITUS WITHOUT COMPLICATIONS Status: Acute Priority: High Current Visit: Yes Qualifiers: Diabetes mellitus type: type 2 Diabetes mellitus termite treater helper insulin use: without halfway use Diabetes mellitus complication status: with unspecified complications Qualified Code(s): E11.8 - Type 2 diabetes mellitus with unspecified complications - Patient Summary/Data Operative Procedure(s) Performed: none Complications: none Consults: Consultations 05/17/18 09:58 Consult to Occupational Therapy [OT Evaluation and Treatment] [CONS] Routine Consult to Physical Therapy [PT Evaluation and Treatment] [CONS] Routine 05/17/18 09:59 Consult to Dietary [Consult to Oil Well Drilling Manager] [CONS] Routine 05/17/18 16:37 Consult to Physician [CONS] Routine Labs Pending at D/C: none Recommended Follow-up Testing/Procedures: Follow up with PCP in 7-10 days Talk to Leona Deleon about a sleep apnea evaluation as outpatient; You would need a polysomnography study (type of sleep study). -Nicotine patches x30 days; follow up with your Primary Care Provider if you need more. -Follow up regarding your new diagnosis of Diabetes, A1C 7.7 here Planned Operative Procedure(s) after DC: none Hospital Course: I/P: Acute exacerbation of Asthma * Diagnosed in 11th grade, never been to billet checker or done PFTs * SOB, wheezing, Peak flow 250 (goal is 400-500) * Duonebs and Prednisone given in ED * Albuterol treatments PRN * Solumedrol 80mg Q6H--> Medrol dose pack on D/C * O2 PRN * Peak flow meter * RT consult * Monitor PNA vs Bronchitis, Improved to Resolved * Risk factor: Failed outpatient treatment for bronchitis 05/10/18 * Cough with yellow and green sputum, nasal congestion * CXR in ED--> mild increased central lung markings most likely bronchitis * Repeat CXR 05/16/18 --> increased lung markings appear stable; new left basilar atelectasis * Chest CT 05/17/18--> patchy increased density within both upper lungs which may represent PNA either typical or atypical * Repeat CXR 05/19/18--> Improved * Sputum culture--> gram positive cocci with moderate gram negative coccobacilli * Levaquin IV Day 5--> Send home with Levaquin 750mg PO x5 days * Mycoplasma and S. pneumo negative * RVP pending * RT/IS/Acapella/Duonebs * Tesslon perles and Robitussin DM PRN * Sepsis workup * Lactic Acid: 2.2-->3.7--> 2.4--> 3.3-->2.6-->2.2 * Blood Cultures--> No growth * U/A not impressive for UTI * IVF--> restarted per sepsis protocol Tobacco dependence * Smokes 1ppd * Discussed tobacco cessation * Habitrol * Psych consult with Dr. Peña refused by pt * Will be D/C'd with Nicotine patches, states she would like to quit New Onset Diabetes type II * A1C 7.7 * F/U with PCP * Weight loss and diet recommended at this time Chronic: Asthma Morbid obesity * BMI 48.5 * Needs polysomnography study--> re: sleep apnea as OP * Dietary consult-->weight loss Query thyroid function--> TSH and T4 normal Plan: Transferred to [facility] isolation Tobacco cessation Home medications Routine AM labs Consult PT/OT/RT DVT/GI prophylaxis: Lovenox 40mg/ Pepcid 20mg Code status: Full Code; PCP: Leona Deleon Recommend Sleep apnea eval as outpt D/C home today. Lorie has recovered quite well after being admitted for Asthma Exacerbation and PNA vs Bronchitis. Her repeat Chest Xray today showed improvement. She is also feeling much better and her wheezing and coughing have significantly improved. She will be discharged home with Levaquin 750mg x5 days, Florastor 250mg BID x12 days, Medrol dose pack and Nicotine patches x30 days. She is advised to continue her albuterol inhaler and nebulizer as needed for asthma exacerbation and can f/u with PCP regarding this condition. Recommend f/u with PCP in 7-10 days. At follow up, pt should discuss with PCP about getting a polysomnography study to r/o sleep apnea, her new diagnosis of Diabetes (A1C 7.7 here) and to get a refill of Nicotine patches if needed. We discussed the importance of making lifestyle changes to help combat the Diabetes, weight issues and smoking. She states she understands and seems to be motivated to make these changes. She said she will look into Weight Watchers and possibly a personal care worker in the near future. - Patient Instructions Diet: Diabetic Diet, Weight Loss Diet Activity: As Tolerated, Cough & Deep Breathe Driving: May Drive Today Showering/Bathing: May Shower Notify Provider of: Fever, Increased Pain, Nausea and/or Vomiting - Discharge Plan *PRESCRIPTION DRUG MONITORING PROGRAM REVIEWED*: Not Applicable *COPY OF PRESCRIPTION DRUG MONITORING REPORT IN PATIENT ALBERT: Not Applicable Prescriptions/Med Rec: levoFLOXacin [Levaquin] 750 mg PO Q24H 5 Days #5 tablet methylPREDNISolone [Medrol] 4 mg PO DAILY #1 dospk Nicotine [Habitrol] 21 mg TRDERM DAILY #30 patch Saccharomyces Boulardii [Florastor] 250 mg PO BID #12 cap Home Medications: Home Meds Albuterol [Proventil Neb Soln] 1.25 mg NEB Q4H 05/14/18 [History] Nicotine [Habitrol] 21 mg TRDERM DAILY #30 patch 05/19/18 [Rx] Saccharomyces Boulardii [Florastor] 250 mg PO BID #12 cap 05/19/18 [Rx] levoFLOXacin [Levaquin] 750 mg PO Q24H 5 Days #5 tablet 05/19/18 [Rx] methylPREDNISolone [Medrol] 4 mg PO DAILY #1 dospk 05/19/18 [Rx] Patient Handouts: Type 2 Diabetes Mellitus, Diagnosis, Adult, Asthma, Adult, [id number], Exercising to Lose Weight, Steps to Quit Smoking, Obesity, Adult, [id number], Community-Acquired Pneumonia, Adult, [id number] Referrals: Leona Deleon NP [Primary Care Provider] - 05/27/18 11:45 am - Discharge Summary/Plan Comment DC Time >30 min.: Yes (40) - General Info Date of Service: 05/19/18 Admission Dx/Problem (Free Text: Admission Diagnosis/Problem Admission Diagnosis/Problem Hypoxia Subjective Update: In to see Lorie. She is sitting up in bed. She states she is feeling much better , that she is able to breathe much better now. She has been ambulating before and after meals and using her IS much more and is able to reach the goal. Good appetite. Urinating. No other concerns from nursing. Her CXR looks much better today and she states she would like to go home. We discussed that smoking is not a good tool for weight loss and that she should look into healthy eating and exercise instead. We also discussed that in order to avoid future pneumonia and asthma exacerbation she should quit smoking now before it gets worse. She agrees. She states she wants to quit and would like Nicotine patches. Will D/C her back home today with prescription for Levaquin x5 days, Florastor, Prednisone taper and Nicotine patches. Functional Status: Reports: Pain Controlled, Tolerating Diet, Ambulating, Urinating - Review of Systems General: Reports: No Symptoms. Denies: Fever, Chills HEENT: Reports: No Symptoms Pulmonary: Reports: No Symptoms. Denies: Shortness of Breath, Cough, Wheezing Cardiovascular: Reports: No Symptoms. Denies: Chest Pain Gastrointestinal: Reports: No Symptoms. Denies: Abdominal Pain, Diarrhea, Nausea, Vomiting Genitourinary: Reports: No Symptoms Musculoskeletal: Reports: No Symptoms Skin: Reports: No Symptoms Neurological: Reports: No Symptoms Psychiatric: Reports: No Symptoms - Patient Data Vitals - Most Recent: Last Vital Signs Temp 98.1 F 05/19/18 08:28 Pulse 104 H 05/19/18 08:28 Resp 16 05/19/18 08:28 BP 133/69 05/19/18 08:28 Pulse Ox 95 05/19/18 15:45 Weight - Most Recent: 294 lb 6.4 oz I&O - Last 24 hours: Intake & Output 05/19/18 05/19/18 05/19/18 06:59 14:59 22:59 Intake Total 2641 420 Output Total 2700 Balance -59 420 Lab Results - Last 24 hrs: Laboratory Results - last 24 hr 05/18/18 05/19/18 05/19/18 Range/Units 17:17 05:15 05:15 WBC (3.98-10.04) K/mm3 RBC (3.98-5.22) M/mm3 Hgb (11.2-15.7) gm/L Hct (34.1-44.9) % MCV (79.4-94.8) fl MCH (25.6-32.2) pg MCHC (32.2-35.5) g/dl RDW Std Deviation (36.4-46.3) fL Plt Count (182-369) K/mm3 MPV (9.4-12.3) fl Neut % (Auto) (34.0-71.1) % Lymph % (Auto) (19.3-51.7) % [place] % (Auto) (4.7-12.5) % Eos % (Auto) (0.7-5.8) Baso % (Auto) (0.1-1.2) % Neut # (Auto) (1.56-6.13) K/mm3 Lymph # (Auto) (1.18-3.74) K/mm3 [place] # (Auto) (0.24-0.36) K/mm3 Eos # (Auto) (0.04-0.36) K/mm3 Baso # (Auto) (0.01-0.08) K/mm3 Manual Slide Review Sodium (136-145) mEq/L Potassium (3.5-5.1) mEq/L Chloride (98-107) mEq/L Carbon Dioxide (21-32) mEq/L Anion Gap (5-15) BUN (7-18) mg/dL Creatinine (0.55-1.02) mg/dL Est Cr Clr Drug Dosing mL/min Estimated GFR (MDRD) (>60) mL/min BUN/Creatinine Ratio (14-18) Glucose (74-106) mg/dL Hemoglobin A1c (4.50-6.20) % Lactic Acid 2.6 H 2.2 H (0.4-2.0) mmol/L Calcium (8.5-10.1) mg/dL Magnesium (1.8-2.4) mg/dl C-Reactive Protein < 0.2 (<1.0) mg/dL 05/19/18 05/19/18 05/19/18 Range/Units 05:15 05:15 10:05 WBC 15.54 H (3.98-10.04) K/mm3 RBC 5.14 (3.98-5.22) M/mm3 Hgb 14.3 (11.2-15.7) gm/L Hct 43.0 (34.1-44.9) % MCV 83.7 (79.4-94.8) fl MCH 27.8 (25.6-32.2) pg MCHC 33.3 (32.2-35.5) g/dl RDW Std Deviation 45.6 (36.4-46.3) fL Plt Count 303 (182-369) K/mm3 MPV 10.1 (9.4-12.3) fl Neut % (Auto) 73.7 H (34.0-71.1) % Lymph % (Auto) 15.6 L (19.3-51.7) % [place] % (Auto) 7.9 (4.7-12.5) % Eos % (Auto) 0 L (0.7-5.8) Baso % (Auto) 0.1 (0.1-1.2) % Neut # (Auto) 11.44 H (1.56-6.13) K/mm3 Lymph # (Auto) 2.43 (1.18-3.74) K/mm3 [place] # (Auto) 1.23 H (0.24-0.36) K/mm3 Eos # (Auto) 0.00 L (0.04-0.36) K/mm3 Baso # (Auto) 0.02 (0.01-0.08) K/mm3 Manual Slide Review Abnormal smear Sodium 134 L (136-145) mEq/L Potassium 4.6 (3.5-5.1) mEq/L Chloride 101 (98-107) mEq/L Carbon Dioxide 23 (21-32) mEq/L Anion Gap 14.6 (5-15) BUN 19 H (7-18) mg/dL Creatinine 0.9 (0.55-1.02) mg/dL Est Cr Clr Drug Dosing 65.05 mL/min Estimated GFR (MDRD) > 60 (>60) mL/min BUN/Creatinine Ratio 21.1 H (14-18) Glucose 330 H (74-106) mg/dL Hemoglobin A1c 7.70 H (4.50-6.20) % Lactic Acid (0.4-2.0) mmol/L Calcium 8.4 L (8.5-10.1) mg/dL Magnesium 2.1 (1.8-2.4) mg/dl C-Reactive Protein (<1.0) mg/dL HELENE Results - Last 24 hrs: Microbiology 05/18/18 13:38 Gram Stain - Final Sputum - Expectorated Sputum Culture - Preliminary 05/15/18 07:50 Aerobic Blood Culture - Preliminary Blood - Venous - Lab Draw NO GROWTH AFTER 4 DAYS Anaerobic Blood Culture - Preliminary NO GROWTH AFTER 4 DAYS 05/15/18 07:35 Aerobic Blood Culture - Preliminary Blood - Venous NO GROWTH AFTER 4 DAYS Anaerobic Blood Culture - Preliminary NO GROWTH AFTER 4 DAYS 05/18/18 09:55 Gram Stain - Final Sputum - Expectorated Sputum Culture - Final 05/16/18 15:49 Urine Culture - Final Urine, Clean Catch MIXED SARI SUGGESTIVE OF CONTAMINATION. Med Orders - Current: Current Medications Acetaminophen (Tylenol) 650 mg PO Q6H PRN PRN Reason: Pain Albuterol/Ipratropium (Duoneb 3.0-0.5 Mg/3 Ml) 3 ml NEB QIDRT [facility] Last Admin: 05/19/18 15:44 Dose: 3 ml Benzonatate (Tessalon Perles) 100 mg PO Q8HR PRN PRN Reason: Cough Last Admin: 05/15/18 00:45 Dose: 100 mg Enoxaparin Sodium (Lovenox) 40 mg SUBCUT DAILY [facility] Last Admin: 05/19/18 08:30 Dose: 40 mg Famotidine (Pepcid) 20 mg PO BID [facility] Last Admin: 05/19/18 08:30 Dose: 20 mg Guaifenesin/Phenylephrine HCl (Robitussin Dm) 15 ml PO Q6H PRN PRN Reason: Cough Ipratropium [place] (Atrovent) 0.5 mg NEB Q8HRRT PRN PRN Reason: Shortness of Breath Levofloxacin (Levaquin) 750 mg PO Q24H [facility] Last Admin: 05/18/18 21:59 Dose: 750 mg Magnesium Oxide (Magnesium Oxide) 400 mg PO DAILY [facility] Last Admin: 05/19/18 08:30 Dose: 400 mg Miscellaneous Information (Remove Patch) 1 ea TRDERM DAILY [facility] Last Admin: 05/19/18 08:30 Dose: Not Given Nicotine (Habitrol) 21 mg TRDERM DAILY [facility] Last Admin: 05/19/18 08:30 Dose: Not Given Prednisone (Prednisone) 40 mg PO WITHBREAKFAST [facility] Saccharomyces Boulardii (Florastor) 250 mg PO BID [facility] Last Admin: 05/19/18 08:29 Dose: 250 mg Sodium Chloride (Saline Flush) 10 ml FLUSH ASDIRECTED PRN PRN Reason: Keep Vein Open Temazepam (Restoril) 7.5 mg PO BEDTIME PRN PRN Reason: Sleep Discontinued Medications Albuterol (Proventil Neb Soln) 2.5 mg NEB ONETIME ONE Stop: 05/14/18 16:40 Last Admin: 05/14/18 16:43 Dose: 2.5 mg Albuterol (Proventil Neb Soln) 7.5 mg NEB ONETIME STA Stop: 05/14/18 17:02 Last Admin: 05/14/18 17:16 Dose: 7.5 mg Albuterol (Proventil Neb Soln) 2.5 mg NEB Q4HRRT PRN PRN Reason: shortness of breath Albuterol/Ipratropium (Duoneb 3.0-0.5 Mg/3 Ml) 3 ml NEB ONETIME ONE Stop: 05/14/18 16:16 Last Admin: 05/14/18 16:26 Dose: 3 ml Albuterol/Ipratropium (Duoneb 3.0-0.5 Mg/3 Ml) 3 ml NEB Q6HRRT [facility] Last Admin: 05/16/18 15:12 Dose: Not Given Famotidine (Pepcid) 20 mg PO DAILY [facility] Last Admin: 05/17/18 21:35 Dose: 20 mg Furosemide (Lasix) 20 mg IVPUSH ONETIME ONE Stop: 05/16/18 19:00 Last Admin: 05/16/18 19:45 Dose: 20 mg Levofloxacin/Dextrose 750 mg/ (Premix) 150 mls @ 100 mls/hr IV Q24H [facility] Stop: 05/18/18 02:00 Last Admin: 05/17/18 21:36 Dose: 100 mls/hr Sodium Chloride (Normal Saline) 1,000 mls @ 999 mls/hr IV ONETIME ONE Stop: 05/15/18 08:08 Last Admin: 05/15/18 07:18 Dose: 999 mls/hr Sodium Chloride (Normal Saline) 1,000 mls @ 150 mls/hr IV ASDIRECTED [facility] Last Admin: 05/16/18 04:05 Dose: 150 mls/hr Azithromycin 500 mg/ Sodium (Chloride) 250 mls @ 250 mls/hr IV Q24H [facility] Last Admin: 05/17/18 17:15 Dose: 250 mls/hr Sodium Chloride (Normal Saline) 1,000 mls @ 999 mls/hr IV ONETIME ONE Stop: 05/18/18 11:48 Last Admin: 05/18/18 11:02 Dose: 999 mls/hr Sodium Chloride (Normal Saline) 1,000 mls @ 125 mls/hr IV ASDIRECTED [facility] Last Admin: 05/19/18 04:34 Dose: 125 mls/hr Methylprednisolone Sodium Succinate (Solu-Medrol) 125 mg IVPUSH Q6H [facility] Last Admin: 05/16/18 09:29 Dose: 125 mg Methylprednisolone Sodium Succinate (Solu-Medrol) 80 mg IVPUSH Q6H [facility] Last Admin: 05/18/18 08:10 Dose: 80 mg Methylprednisolone Sodium Succinate (Solu-Medrol) 80 mg IVPUSH Q12H [facility] Last Admin: 05/19/18 08:30 Dose: 80 mg Pneumococcal Polyvalent Vaccine (Pneumovax 23) 0.5 ml IM .ONCE ONE Stop: 05/16/18 09:01 Prednisone (Prednisone) 60 mg PO ONETIME STA Stop: 05/14/18 16:17 Last Admin: 05/14/18 16:41 Dose: 60 mg - Exam Quality Assessment: Reports: DVT Prophylaxis. Denies: Supplemental Oxygen General: Reports: Alert, Oriented, Cooperative, No Acute Distress HEENT: Reports: Pupils Equal, Pupils Reactive, EOMI, Mucous Membr. Moist/[place] Neck: Reports: Supple Lungs: Reports: Clear to Auscultation, Normal Respiratory Effort Cardiovascular: Reports: Regular Rate, Regular Rhythm GI/Abdominal Exam: Normal Bowel Sounds, Soft, Non-Tender, No Organomegaly, No Distention, No Abnormal Bruit, No Mass, Pelvis Stable (Female) Exam: Deferred Rectal (Female) Exam: Deferred Back Exam: Reports: Normal Inspection, Full Range of Motion Extremities: Normal Inspection, Normal Range of Motion, Non-Tender, No Pedal Edema, Normal Capillary Refill Skin: Reports: Warm, Dry, Intact Neurological: Reports: No New Focal Deficit Psy/Mental Status: Reports: Alert, Normal Affect, Normal Mood
[2018-05-20] MEDS ORDERED: predniSONE 20 MG Tab PO SCH (07:00)
== END 2018-05-19 16:55 | disposition home or self-care (01) | DRG 141 ==
LOC: JD.ED 15:47 → JD.MS 20:33
PROVIDERS: ADMIT Internal Medicine Cardiovascular Disease; ATTEND Internal Medicine Cardiovascular Disease
DX: J45.901 Unspecified asthma with (acute) exacerbation (principal); J18.1 Lobar pneumonia, unspecified organism; E66.01 Morbid (severe) obesity due to excess calories; E11.9 Type 2 diabetes mellitus without complications; Z68.42 Body mass index [BMI] 45.0-49.9, adult; F17.210 Nicotine dependence, cigarettes, uncomplicated; J40 Bronchitis, not specified as acute or chronic; H54.7 Unspecified visual loss; Z79.899 Other long term (current) drug therapy; Z88.6 Allergy status to analgesic agent; Z88.1 Allergy status to other antibiotic agents; Z88.2 Allergy status to sulfonamides; Z90.710 Acquired absence of both cervix and uterus
CPT/HCPCS: 36415; 71045; 71045-26; 71046; 71046-26; 71250; 71250-26; 80048; 80053; 81001; 82270; 83036; 83605; 83735; 84439; 84443; 85007; 85025; 85027; 86140; 86141; 86738; 87040; 87070; 87086; 87205; 87899; 94640; 94667; 94668; 94761; 97161-GP; 99284; 99285-25; A9270-GY; J0456; J1650; J1956; J2920; J2930; J7040; J7050

== ENCOUNTER 2025-03-31 17:06 | Inpatient (IN) | payer BC, MEDICAID ==
[2025-03-31] MEDS: Sodium Chloride 0.9% 2,000 ML IV ONE (17:56)
[2025-03-31] MEDS: Ondansetron 4 MG/2 ML SDV IVPUSH ONE (17:56)
[2025-03-31] MEDS: Sodium Chloride 0.9% 1,000 ML ONE (17:56)
[2025-03-31 18:09] LABS: BASOPHILS ABSOLUTE AUTO 0.1 K/mm3 (0.0-0.2); BASOPHILS PERCENT AUTO 0.5 % (0.0-1.0); EOSINOPHILS ABSOLUTE AUTO 0.1 K/mm3 (0.0-0.4); EOSINOPHILS PERCENT AUTO 0.3 % (0.0-6.0); HEMATOCRIT 53.5 % (37.0-47.0); HEMOGLOBIN 17.2 gm/dl (12.0-16.0); IMMATURE GRAN ABSOLUTE AUTO 0.15 K/mm3 (0.00-0.05); LYMPHOCYTES ABSOLUTE AUTO 1.8 K/mm3 (1.0-4.8); LYMPHOCYTES PERCENT AUTO 11.9 % (24.0-44.0); MEAN CORPUSCULAR HEMOGLOBIN 28.9 pg (28.0-32.0); MEAN CORPUSCULAR HGB CONC 32.1 g/dl (32.0-36.0); MEAN CORPUSCULAR VOLUME 89.8 fl (83.0-99.0); MEAN PLATELET VOLUME 10.8 fl (9.4-12.3); MONOCYTES ABSOLUTE AUTO 1.2 K/mm3 (0.0-0.8); MONOCYTES PERCENT AUTO 8.2 % (0.0-8.0); NEUTROPHILS ABSOLUTE AUTO 11.4 K/mm3 (1.8-7.7); NEUTROPHILS PERCENT AUTO 78.1 % (41.0-71.0); PLATELET COUNT,PLT 113 K/mm3 (150-400); RED BLOOD CELL COUNT 5.96 M/mm3 (4.10-5.30); WHITE BLOOD CELL COUNT,WBC 14.68 K/mm3 (3.9-11.3)
[2025-03-31 18:26] LABS: INR 1.41; PROTHROMBIN TIME 14.6 SECONDS (9.7-12.0)
[2025-03-31 18:42] LABS: A/G RATIO 0.6 (1-2); ALBUMIN 2.5 g/dl (3.4-5.0); ANION GAP 23.9 (5-15); BILIRUBIN TOTAL 1.7 mg/dL (0.2-1.0); BUN/CREATININE RATIO 15.8 (14-18); CALCIUM 9.6 mg/dL (8.5-10.1); CREATININE 1.2 mg/dL (0.55-1.02); EST CRCL DRUG DOSING (CG) 50.29 mL/min; POTASSIUM,K 3.9 mEq/L (3.5-5.1); PROTEIN TOTAL,TP 6.9 g/dl (6.4-8.2)
[2025-03-31 19:33] LABS: APPEARANCE,URINE SLT CLOUDY (Clear); BILIRUBIN,URINE 3+ (Negative); COLOR,URINE AMBER (Yellow); GLUCOSE,URINE 2+ (Negative); KETONES,URINE 4+ (Negative); LEUKOCYTE ESTERASE,URINE NEGATIVE (Negative); NITRITE,URINE NEGATIVE (Negative); OCCULT BLOOD,URINE TRACE-INTACT (Negative); PROTEIN,URINE 2+ (Negative)
[2025-03-31 19:43] LABS: BARBITURATE SCREEN,URINE NEGATIVE (CUTOFF=200); BENZODIAZEPINES SCREEN,URINE NEGATIVE (CUTOFF=150); BUPRENORPHINE SCREEN,URINE NEGATIVE (CUTOFF=10); METHADONE SCREEN, URINE NEGATIVE (CUTOFF=200); METHAMPHETAMINES SCREEN, URINE NEGATIVE (CUTOFF=500); OXYCODONE SCREEN,URINE NEGATIVE (CUT0FF=100); THC SCREEN,URINE 20 NG/ML NEGATIVE (CUTOFF=50)
[2025-03-31 19:45] LABS: AMPHETAMINES SCREEN, URINE NEGATIVE (CUTOFF=500)
[2025-03-31 19:53] LABS: BACTERIA,URINE MODERATE /hpf (FEW); MUCUS,URINE FEW /hpf (FEW); YEAST,URINE FEW (NOT SEEN)
[2025-03-31 20:22] LABS: BASOPHILS ABSOLUTE AUTO 0.1 K/mm3 (0.0-0.2); BASOPHILS PERCENT AUTO 0.4 % (0.0-1.0); EOSINOPHILS PERCENT AUTO 0.3 % (0.0-6.0); HEMATOCRIT 50.7 % (37.0-47.0); HEMOGLOBIN 16.6 gm/dl (12.0-16.0); IMMATURE GRAN ABSOLUTE AUTO 0.15 K/mm3 (0.00-0.05); IMMATURE GRAN PERCENT AUTO 1.1 % (0.0-0.4); LYMPHOCYTES ABSOLUTE AUTO 1.4 K/mm3 (1.0-4.8); LYMPHOCYTES PERCENT AUTO 10.3 % (24.0-44.0); MEAN CORPUSCULAR HEMOGLOBIN 29.2 pg (28.0-32.0); MEAN CORPUSCULAR HGB CONC 32.7 g/dl (32.0-36.0); MEAN CORPUSCULAR VOLUME 89.3 fl (83.0-99.0); MEAN PLATELET VOLUME 10.7 fl (9.4-12.3); MONOCYTES ABSOLUTE AUTO 1.3 K/mm3 (0.0-0.8); MONOCYTES PERCENT AUTO 9.7 % (0.0-8.0); NEUTROPHILS ABSOLUTE AUTO 10.6 K/mm3 (1.8-7.7); NEUTROPHILS PERCENT AUTO 78.2 % (41.0-71.0); PLATELET COUNT,PLT 91 K/mm3 (150-400); RED BLOOD CELL COUNT 5.68 M/mm3 (4.10-5.30); WHITE BLOOD CELL COUNT,WBC 13.61 K/mm3 (3.9-11.3)
[2025-03-31 20:51] LABS: A/G RATIO 0.6 (1-2); ALBUMIN 2.3 g/dl (3.4-5.0); ANION GAP 25.6 (5-15); BILIRUBIN TOTAL 1.4 mg/dL (0.2-1.0); BUN/CREATININE RATIO 17.3 (14-18); CALCIUM 9.1 mg/dL (8.5-10.1); CREATININE 1.1 mg/dL (0.55-1.02); EST CRCL DRUG DOSING (CG) 54.86 mL/min; PROTEIN TOTAL,TP 6.3 g/dl (6.4-8.2)
[2025-03-31 20:57] LABS: POTASSIUM,K 3.6 mEq/L (3.5-5.1)
[2025-03-31] MEDS: Lactated Ringers 1,000 ML IV ONE (21:55)
[2025-03-31] MEDS: Insulin Regular, Human 100 Units/ML 3 ML Vial IV ONE (21:56)
[2025-03-31] MEDS ORDERED: Potassium Chloride 10 MEQ in Premix Bag 1 BAG IV PRN (22:15)
[2025-03-31] MEDS: Insulin Regular in 0.9 % NACL 100 ML IV SCH (22:39)
[2025-03-31] MEDS: Potassium Chloride 10 MEQ in Premix Bag 1 BAG IV PRN (22:40)
[2025-03-31 23:00] LABS: ANION GAP 23.7 (5-15); BUN/CREATININE RATIO 16.7 (14-18); CALCIUM 9.1 mg/dL (8.5-10.1); CREATININE 1.2 mg/dL (0.55-1.02); EST CRCL DRUG DOSING (CG) 46.67 mL/min; MAGNESIUM 1.8 mg/dL (1.8-2.4); PHOSPHORUS 4.4 mg/dL (2.6-4.7); POTASSIUM,K 3.7 mEq/L (3.5-5.1)
[2025-03-31] MEDS: NS + KCl 20mEq/L 1,000 ML IV SCH (23:00)
[2025-04-01] MEDS: Ondansetron 4 MG/2 ML SDV IVPUSH PRN (01:36)
[2025-04-01] MEDS: Simethicone 80 MG Tab.Chew PO PRN (01:36)
[2025-04-01] MEDS: Sodium Chloride 0.45% with KCl 1,000 ML IV SCH (02:05)
[2025-04-01 02:35] LABS: ANION GAP 17.6 (5-15); BUN/CREATININE RATIO 18.3 (14-18); CALCIUM 8.8 mg/dL (8.5-10.1); CREATININE 1.2 mg/dL (0.55-1.02); EST CRCL DRUG DOSING (CG) 46.67 mL/min; POTASSIUM,K 3.6 mEq/L (3.5-5.1)
[2025-04-01 04:36] LABS: MAGNESIUM 1.6 mg/dL (1.8-2.4); PHOSPHORUS 2.8 mg/dL (2.6-4.7)
[2025-04-01] MEDS: D5 1/2 NS w/ 20 mEq/L KCl 1,000 ML IV SCH (06:07)
[2025-04-01 06:37] LABS: ANION GAP 15.5 (5-15); BUN/CREATININE RATIO 19.1 (14-18); CREATININE 1.1 mg/dL (0.55-1.02); EST CRCL DRUG DOSING (CG) 50.91 mL/min; POTASSIUM,K 3.5 mEq/L (3.5-5.1)
[2025-04-01] MEDS: Potassium Chloride 20 MEQ Tab.ER PO ONE (10:44)
[2025-04-01] MEDS ORDERED: Sennosides/Docusate Sodium 50-8.6 MG Tab PO PRN (10:50)
[2025-04-01] MEDS ORDERED: Albuterol 0.042% 1.25 MG/3 ML Neb Soln NEB PRN (10:56)
[2025-04-01] MEDS: Metoclopramide 10 MG/2 ML SDV IVPUSH PRN (10:57)
[2025-04-01] MEDS: Potassium Chloride 10 MEQ in Premix Bag 1 BAG IV ONE ×2 (10:57→12:31)
[2025-04-01] MEDS: Magnesium Sulfate 2 GM/50 mL 2 GM in Premix Bag 1 BAG IV ONE (10:57)
[2025-04-01 10:58] LABS: ANION GAP 12.3 (5-15); CALCIUM 8.9 mg/dL (8.5-10.1); CREATININE 1.1 mg/dL (0.55-1.02); EST CRCL DRUG DOSING (CG) 50.91 mL/min; MAGNESIUM 1.6 mg/dL (1.8-2.4); PHOSPHORUS 2.4 mg/dL (2.6-4.7); POTASSIUM,K 3.3 mEq/L (3.5-5.1)
[2025-04-01 11:12] LABS: HEMOGLOBIN A1C >14.0 %
[2025-04-01] MEDS: Pantoprazole 40 MG Tab.CR PO ONE (11:25)
[2025-04-01] MEDS: Enoxaparin 40 MG/0.4 ML Syringe SUBCUT SCH (11:25)
[2025-04-01] MEDS: Sodium Chloride 0.9% 10 ML Syringe FLUSH ONE (14:02)
[2025-04-01] MEDS: Iopamidol 612 MG/ML 100 ML Bottle IVPUSH ONE (14:02)
[2025-04-01 14:41] LABS: ANION GAP 11.7 (5-15); BUN/CREATININE RATIO 22.2 (14-18); CALCIUM 8.6 mg/dL (8.5-10.1); CREATININE 0.9 mg/dL (0.55-1.02); EST CRCL DRUG DOSING (CG) 62.23 mL/min; POTASSIUM,K 3.7 mEq/L (3.5-5.1)
[2025-04-01] MEDS: Sennosides/Docusate Sodium 50-8.6 MG Tab PO SCH (15:28)
[2025-04-01 17:01] LABS: MAGNESIUM 2.1 mg/dL (1.8-2.4); PHOSPHORUS 2.5 mg/dL (2.6-4.7)
[2025-04-01 18:37] LABS: ANION GAP 11.9 (5-15); CALCIUM 8.7 mg/dL (8.5-10.1); CREATININE 0.9 mg/dL (0.55-1.02); EST CRCL DRUG DOSING (CG) 62.23 mL/min; POTASSIUM,K 3.9 mEq/L (3.5-5.1)
[2025-04-01] MEDS: Saccharomyces Boulardii (Probiotic) 250 MG Cap PO SCH (20:27)
[2025-04-01] MEDS: Insulin Glargine,Human Rec. Analog 100 Units/ML 3 ML Pen SUBCUT SCH (20:35)
[2025-04-01] MEDS: Insulin Lispro 100 Unit/ML 3 ML KwikPen SUBCUT SCH (21:03)
[2025-04-02 05:39] LABS: BASOPHILS ABSOLUTE AUTO 0.1 K/mm3 (0.0-0.2); BASOPHILS PERCENT AUTO 0.7 % (0.0-1.0); EOSINOPHILS ABSOLUTE AUTO 0.2 K/mm3 (0.0-0.4); EOSINOPHILS PERCENT AUTO 1.5 % (0.0-6.0); HEMATOCRIT 45.2 % (37.0-47.0); IMMATURE GRAN ABSOLUTE AUTO 0.09 K/mm3 (0.00-0.05); IMMATURE GRAN PERCENT AUTO 0.8 % (0.0-0.4); LYMPHOCYTES ABSOLUTE AUTO 1.7 K/mm3 (1.0-4.8); LYMPHOCYTES PERCENT AUTO 14.8 % (24.0-44.0); MEAN CORPUSCULAR HEMOGLOBIN 28.6 pg (28.0-32.0); MEAN CORPUSCULAR HGB CONC 32.7 g/dl (32.0-36.0); MEAN CORPUSCULAR VOLUME 87.3 fl (83.0-99.0); MONOCYTES ABSOLUTE AUTO 1.3 K/mm3 (0.0-0.8); MONOCYTES PERCENT AUTO 11.5 % (0.0-8.0); NEUTROPHILS ABSOLUTE AUTO 8.1 K/mm3 (1.8-7.7); NEUTROPHILS PERCENT AUTO 70.7 % (41.0-71.0); PLATELET COUNT,PLT 82 K/mm3 (150-400); RED BLOOD CELL COUNT 5.18 M/mm3 (4.10-5.30); WHITE BLOOD CELL COUNT,WBC 11.39 K/mm3 (3.9-11.3)
[2025-04-02 05:51] LABS: HEMOGLOBIN 14.8 gm/dl (12.0-16.0)
[2025-04-02 06:07] LABS: A/G RATIO 0.6 (1-2); ANION GAP 16.1 (5-15); BILIRUBIN TOTAL 1.5 mg/dL (0.2-1.0); BUN/CREATININE RATIO 26.3 (14-18); CALCIUM 8.6 mg/dL (8.5-10.1); CREATININE 0.8 mg/dL (0.55-1.02); EST CRCL DRUG DOSING (CG) 70.01 mL/min; MAGNESIUM 2.1 mg/dL (1.8-2.4); PHOSPHORUS 2.9 mg/dL (2.6-4.7); POTASSIUM,K 4.1 mEq/L (3.5-5.1); PROTEIN TOTAL,TP 5.6 g/dl (6.4-8.2)
[2025-04-02 06:22] LABS: SLIDE REVIEW ABNORMAL SMEAR
[2025-04-02] MEDS: Nicotine 21 MG/24 Hr Patch TRDERM SCH (09:26)
[2025-04-02] MEDS: Apixaban 5 MG Tab PO SCH (14:29)
[2025-04-02] MEDS: Insulin Glargine,Human Rec. Analog 100 Units/ML 3 ML Pen SUBCUT ONE (14:30)
[2025-04-02] MEDS: Pantoprazole 40 MG Tab.CR PO SCH (14:39)
[2025-04-02] MEDS: Melatonin 3 MG Tab PO PRN (20:07)
[2025-04-02] MEDS: Polyethylene Glycol 3350 Powder 17 GM Packet PO SCH (20:08)
[2025-04-02] MEDS: Insulin Glargine,Human Rec. Analog 100 Units/ML 3 ML Pen SUBCUT SCH (21:04)
[2025-04-03] MEDS: Acetaminophen 325 MG Tab PO PRN (02:46)
[2025-04-03 05:39] LABS: BASOPHILS ABSOLUTE AUTO 0.1 K/mm3 (0.0-0.2); BASOPHILS PERCENT AUTO 0.7 % (0.0-1.0); EOSINOPHILS ABSOLUTE AUTO 0.2 K/mm3 (0.0-0.4); HEMATOCRIT 44.5 % (37.0-47.0); IMMATURE GRAN ABSOLUTE AUTO 0.13 K/mm3 (0.00-0.05); IMMATURE GRAN PERCENT AUTO 1.3 % (0.0-0.4); LYMPHOCYTES ABSOLUTE AUTO 1.8 K/mm3 (1.0-4.8); LYMPHOCYTES PERCENT AUTO 17.1 % (24.0-44.0); MEAN CORPUSCULAR HEMOGLOBIN 29.1 pg (28.0-32.0); MEAN CORPUSCULAR HGB CONC 33.7 g/dl (32.0-36.0); MEAN CORPUSCULAR VOLUME 86.4 fl (83.0-99.0); MEAN PLATELET VOLUME 11.2 fl (9.4-12.3); MONOCYTES ABSOLUTE AUTO 1.1 K/mm3 (0.0-0.8); MONOCYTES PERCENT AUTO 10.5 % (0.0-8.0); NEUTROPHILS ABSOLUTE AUTO 7.1 K/mm3 (1.8-7.7); NEUTROPHILS PERCENT AUTO 68.4 % (41.0-71.0); PLATELET COUNT,PLT 85 K/mm3 (150-400); RED BLOOD CELL COUNT 5.15 M/mm3 (4.10-5.30); WHITE BLOOD CELL COUNT,WBC 10.37 K/mm3 (3.9-11.3)
[2025-04-03 06:23] LABS: INR 1.36; PROTHROMBIN TIME 14.1 SECONDS (9.7-12.0)
[2025-04-03 06:42] LABS: A/G RATIO 0.5 (1-2); ALBUMIN 1.9 g/dl (3.4-5.0); BILIRUBIN TOTAL 1.7 mg/dL (0.2-1.0); BUN/CREATININE RATIO 33.3 (14-18); CALCIUM 9.1 mg/dL (8.5-10.1); CREATININE 0.6 mg/dL (0.55-1.02); EST CRCL DRUG DOSING (CG) 93.34 mL/min; PHOSPHORUS 2.9 mg/dL (2.6-4.7); PROTEIN TOTAL,TP 5.6 g/dl (6.4-8.2)
[2025-04-03 07:20] LABS: SLIDE REVIEW ABNORMAL SMEAR
[2025-04-03] MEDS: Insulin Glargine,Human Rec. Analog 100 Units/ML 3 ML Pen SUBCUT STA (14:53)
[2025-04-03] MEDS: Warfarin 2.5 MG Tab PO SCH (18:59)
[2025-04-03] MEDS: Heparin Sodium/D5W 250 ML IV SCH (18:59)
[2025-04-03] MEDS: Ondansetron 4 MG Tab.DIS PO PRN (19:19)
[2025-04-03] MEDS: Insulin Glargine,Human Rec. Analog 100 Units/ML 3 ML Pen SUBCUT SCH (20:27)
[2025-04-04] MEDS: LORazepam 2 MG/ML SDV IVPUSH PRN (01:29)
[2025-04-04] MEDS: Heparin Sodium 5,000 Units/ML Vial IVPUSH ONE (01:30)
[2025-04-04 06:18] LABS: HEMATOCRIT 45.9 % (37.0-47.0); HEMOGLOBIN 15.4 gm/dl (12.0-16.0); MEAN CORPUSCULAR HEMOGLOBIN 29.2 pg (28.0-32.0); MEAN CORPUSCULAR HGB CONC 33.6 g/dl (32.0-36.0); MEAN CORPUSCULAR VOLUME 86.9 fl (83.0-99.0); MEAN PLATELET VOLUME 11.5 fl (9.4-12.3); PLATELET COUNT,PLT 104 K/mm3 (150-400); RED BLOOD CELL COUNT 5.28 M/mm3 (4.10-5.30); WHITE BLOOD CELL COUNT,WBC 12.33 K/mm3 (3.9-11.3)
[2025-04-04 06:36] LABS: INR 1.35
[2025-04-04 06:44] LABS: A/G RATIO 0.5 (1-2); ALBUMIN 1.9 g/dl (3.4-5.0); ANION GAP 12.8 (5-15); BILIRUBIN TOTAL 3.1 mg/dL (0.2-1.0); CALCIUM 9.3 mg/dL (8.5-10.1); CREATININE 0.5 mg/dL (0.55-1.02); EST CRCL DRUG DOSING (CG) 112.01 mL/min; PHOSPHORUS 3.4 mg/dL (2.6-4.7); POTASSIUM,K 4.8 mEq/L (3.5-5.1); PROTEIN TOTAL,TP 5.8 g/dl (6.4-8.2)
[2025-04-04] MEDS: Warfarin 5 MG Tab PO SCH (18:12)
[2025-04-05] MEDS: Heparin Sodium 5,000 Units/ML Vial IVPUSH ONE (01:06)
[2025-04-05] MEDS: 50% Dextrose in Water 50 ML Syringe IVPUSH PRN (06:44)
[2025-04-05 06:49] LABS: BASOPHILS ABSOLUTE AUTO 0.1 K/mm3 (0.0-0.2); BASOPHILS PERCENT AUTO 0.4 % (0.0-1.0); EOSINOPHILS ABSOLUTE AUTO 0.1 K/mm3 (0.0-0.4); EOSINOPHILS PERCENT AUTO 0.9 % (0.0-6.0); HEMATOCRIT 46.1 % (37.0-47.0); HEMOGLOBIN 15.4 gm/dl (12.0-16.0); IMMATURE GRAN ABSOLUTE AUTO 0.21 K/mm3 (0.00-0.05); IMMATURE GRAN PERCENT AUTO 1.4 % (0.0-0.4); LYMPHOCYTES PERCENT AUTO 13.5 % (24.0-44.0); MEAN CORPUSCULAR HEMOGLOBIN 29.1 pg (28.0-32.0); MEAN CORPUSCULAR HGB CONC 33.4 g/dl (32.0-36.0); MEAN PLATELET VOLUME 11.1 fl (9.4-12.3); MONOCYTES ABSOLUTE AUTO 1.9 K/mm3 (0.0-0.8); MONOCYTES PERCENT AUTO 12.9 % (0.0-8.0); NEUTROPHILS ABSOLUTE AUTO 10.6 K/mm3 (1.8-7.7); NEUTROPHILS PERCENT AUTO 70.9 % (41.0-71.0); PLATELET COUNT,PLT 148 K/mm3 (150-400); WHITE BLOOD CELL COUNT,WBC 14.94 K/mm3 (3.9-11.3)
[2025-04-05 07:07] LABS: SLIDE REVIEW ABNORMAL SMEAR
[2025-04-05 07:15] LABS: INR 1.25; PROTHROMBIN TIME 13.1 SECONDS (9.7-12.0)
[2025-04-05 07:21] LABS: A/G RATIO 0.5 (1-2); ALBUMIN 1.9 g/dl (3.4-5.0); ANION GAP 10.5 (5-15); BILIRUBIN TOTAL 4.1 mg/dL (0.2-1.0); BUN/CREATININE RATIO 28.3 (14-18); CALCIUM 8.9 mg/dL (8.5-10.1); EST CRCL DRUG DOSING (CG) 93.34 mL/min; POTASSIUM,K 4.5 mEq/L (3.5-5.1)
[2025-04-05 07:27] LABS: CREATININE 0.6 mg/dL (0.55-1.02)
[2025-04-05] MEDS: Sodium Chloride 0.9% 250 ML IV ONE (16:15)
[2025-04-05] MEDS ORDERED: Warfarin 3 MG Tab PO SCH (18:00)
[2025-04-05] MEDS: Ibuprofen 200 MG Tab PO PRN (19:41)
[2025-04-05] MEDS: Insulin Glargine,Human Rec. Analog 100 Units/ML 3 ML Pen SUBCUT SCH (20:02)
[2025-04-06] MEDS: Heparin Sodium 5,000 Units/ML Vial IVPUSH ONE ×3 (03:10→21:52)
[2025-04-06 08:45] LABS: BASOPHILS ABSOLUTE AUTO 0.1 K/mm3 (0.0-0.2); BASOPHILS PERCENT AUTO 0.5 % (0.0-1.0); EOSINOPHILS ABSOLUTE AUTO 0.2 K/mm3 (0.0-0.4); EOSINOPHILS PERCENT AUTO 2.2 % (0.0-6.0); HEMATOCRIT 41.3 % (37.0-47.0); IMMATURE GRAN ABSOLUTE AUTO 0.13 K/mm3 (0.00-0.05); IMMATURE GRAN PERCENT AUTO 1.2 % (0.0-0.4); LYMPHOCYTES ABSOLUTE AUTO 2.3 K/mm3 (1.0-4.8); LYMPHOCYTES PERCENT AUTO 20.5 % (24.0-44.0); MEAN CORPUSCULAR HEMOGLOBIN 29.1 pg (28.0-32.0); MEAN CORPUSCULAR HGB CONC 33.4 g/dl (32.0-36.0); MEAN CORPUSCULAR VOLUME 86.9 fl (83.0-99.0); MEAN PLATELET VOLUME 11.4 fl (9.4-12.3); MONOCYTES ABSOLUTE AUTO 1.5 K/mm3 (0.0-0.8); MONOCYTES PERCENT AUTO 13.1 % (0.0-8.0); NEUTROPHILS PERCENT AUTO 62.5 % (41.0-71.0); PLATELET COUNT,PLT 141 K/mm3 (150-400); RED BLOOD CELL COUNT 4.75 M/mm3 (4.10-5.30)
[2025-04-06] MEDS: Insulin Glargine,Human Rec. Analog 100 Units/ML 3 ML Pen SUBCUT SCH ×3 (08:47→21:52)
[2025-04-06 08:52] LABS: HEMOGLOBIN 13.8 gm/dl (12.0-16.0)
[2025-04-06 09:22] LABS: A/G RATIO 0.4 (1-2); ALBUMIN 1.6 g/dl (3.4-5.0); ANION GAP 9.8 (5-15); BILIRUBIN TOTAL 3.4 mg/dL (0.2-1.0); BUN/CREATININE RATIO 31.7 (14-18); CALCIUM 8.4 mg/dL (8.5-10.1); CREATININE 0.6 mg/dL (0.55-1.02); EST CRCL DRUG DOSING (CG) 93.34 mL/min; POTASSIUM,K 4.8 mEq/L (3.5-5.1); PROTEIN TOTAL,TP 5.3 g/dl (6.4-8.2)
[2025-04-06 11:57] LABS: INR 1.63; PROTHROMBIN TIME 16.7 SECONDS (9.7-12.0)
[2025-04-06] MEDS: Furosemide 20 MG/2 ML VIAL IVPUSH ONE (12:07)
[2025-04-06] MEDS: Furosemide 40 MG/4 ML VIAL IVPUSH ONE (13:44)
[2025-04-06] MEDS: Warfarin 3 MG Tab PO SCH (16:59)
[2025-04-06] MEDS: traZODone 50 MG Tab PO PRN (20:27)
[2025-04-07 05:01] LABS: INR 1.43; PROTHROMBIN TIME 14.8 SECONDS (9.7-12.0)
[2025-04-07 05:48] LABS: HEMATOCRIT 39.9 % (37.0-47.0); HEMOGLOBIN 13.5 gm/dl (12.0-16.0); MEAN CORPUSCULAR HEMOGLOBIN 29.1 pg (28.0-32.0); MEAN CORPUSCULAR HGB CONC 33.8 g/dl (32.0-36.0); MEAN PLATELET VOLUME 12.2 fl (9.4-12.3); PLATELET COUNT,PLT 160 K/mm3 (150-400); RED BLOOD CELL COUNT 4.64 M/mm3 (4.10-5.30); WHITE BLOOD CELL COUNT,WBC 10.92 K/mm3 (3.9-11.3)
[2025-04-07] MEDS: Midodrine 5 MG Tab PO SCH (06:04)
[2025-04-07 06:22] LABS: A/G RATIO 0.4 (1-2); ALBUMIN 1.6 g/dl (3.4-5.0); ANION GAP 14.3 (5-15); BILIRUBIN TOTAL 3.8 mg/dL (0.2-1.0); BUN/CREATININE RATIO 27.1 (14-18); CALCIUM 8.5 mg/dL (8.5-10.1); CREATININE 0.7 mg/dL (0.55-1.02); EST CRCL DRUG DOSING (CG) 80.01 mL/min; POTASSIUM,K 4.3 mEq/L (3.5-5.1); PROTEIN TOTAL,TP 5.5 g/dl (6.4-8.2)
[2025-04-07] MEDS: Insulin Glargine,Human Rec. Analog 100 Units/ML 3 ML Pen SUBCUT SCH (08:03)
[2025-04-07] MEDS: Enoxaparin 100 MG/1 ML Syringe SUBCUT SCH (12:48)
[2025-04-07] MEDS: Midodrine 5 MG Tab PO ONE (16:43)
[2025-04-07] MEDS ORDERED: Warfarin 7.5 MG Tab PO SCH (18:00)
[2025-04-07] MEDS: Calcium Carbonate 500 MG Tab.Chew PO ONE (20:27)
[2025-04-08 05:57] LABS: INR 2.3
[2025-04-08 06:12] LABS: PROTHROMBIN TIME 23.1 SECONDS (9.7-12.0)
[2025-04-08] MEDS: Midodrine 5 MG Tab PO SCH (06:22)
[2025-04-08] MEDS: LORazepam 1 MG Tab PO PRN (20:36)
[2025-04-10] MEDS: Furosemide 20 MG Tab PO SCH (09:09)
[2025-04-10] MEDS: Enoxaparin 100 MG/1 ML Syringe SUBCUT SCH (11:22)
[2025-04-10] MEDS: Docusate Sodium 100 MG Cap PO SCH (20:37)
[2025-04-11] MEDS: Metoclopramide 5 MG Tab PO PRN (09:17)
[2025-04-11] MEDS: Furosemide 20 MG Tab PO ONE (11:10)
[2025-04-11] MEDS: Metoclopramide 5 MG Tab PO SCH (11:10)
[2025-04-12] MEDS: Furosemide 40 MG Tab PO SCH (09:22)
[2025-04-12] MEDS: oxyCODONE 5 MG Tab PO PRN (20:43)
[2025-04-13 07:02] LABS: BASOPHILS ABSOLUTE AUTO 0.1 K/mm3 (0.0-0.2); BASOPHILS PERCENT AUTO 0.7 % (0.0-1.0); EOSINOPHILS ABSOLUTE AUTO 0.2 K/mm3 (0.0-0.4); EOSINOPHILS PERCENT AUTO 1.8 % (0.0-6.0); HEMATOCRIT 41.1 % (37.0-47.0); HEMOGLOBIN 13.9 gm/dl (12.0-16.0); IMMATURE GRAN ABSOLUTE AUTO 0.22 K/mm3 (0.00-0.05); IMMATURE GRAN PERCENT AUTO 1.7 % (0.0-0.4); LYMPHOCYTES ABSOLUTE AUTO 2.1 K/mm3 (1.0-4.8); LYMPHOCYTES PERCENT AUTO 15.9 % (24.0-44.0); MEAN CORPUSCULAR HEMOGLOBIN 28.7 pg (28.0-32.0); MEAN CORPUSCULAR HGB CONC 33.8 g/dl (32.0-36.0); MEAN CORPUSCULAR VOLUME 84.9 fl (83.0-99.0); MEAN PLATELET VOLUME 11.1 fl (9.4-12.3); MONOCYTES ABSOLUTE AUTO 0.9 K/mm3 (0.0-0.8); MONOCYTES PERCENT AUTO 6.8 % (0.0-8.0); NEUTROPHILS ABSOLUTE AUTO 9.5 K/mm3 (1.8-7.7); NEUTROPHILS PERCENT AUTO 73.1 % (41.0-71.0); PLATELET COUNT,PLT 187 K/mm3 (150-400); RED BLOOD CELL COUNT 4.84 M/mm3 (4.10-5.30); WHITE BLOOD CELL COUNT,WBC 12.93 K/mm3 (3.9-11.3)
[2025-04-13 07:37] LABS: A/G RATIO 0.4 (1-2); ALBUMIN 1.7 g/dl (3.4-5.0); ANION GAP 10.9 (5-15); BILIRUBIN TOTAL 7.5 mg/dL (0.2-1.0); EST CRCL DRUG DOSING (CG) 80.01 mL/min
[2025-04-13 08:11] LABS: CREATININE 0.7 mg/dL (0.55-1.02); POTASSIUM,K 3.9 mEq/L (3.5-5.1)
== END 2025-04-13 14:36 | DRG 638 ==
LOC: JD.ED 17:06 → JD.ICU 21:34 → UNDOADMIN 21:34 → JD.MS 04-06 22:50
PROVIDERS: ADMIT Student in an Organized Health Care Education/Training Program; ATTEND Student in an Organized Health Care Education/Training Program
DX: E10.10 Type 1 diabetes mellitus with ketoacidosis without coma (principal); C25.1 Malignant neoplasm of body of pancreas; C78.7 Secondary malignant neoplasm of liver and intrahepatic bile duct; C78.00 Secondary malignant neoplasm of unspecified lung; C77.2 Secondary and unspecified malignant neoplasm of intra-abdominal lymph nodes; I82.403 Acute embolism and thrombosis of unspecified deep veins of lower extremity, bilateral; Z66 Do not resuscitate; H54.7 Unspecified visual loss; J45.909 Unspecified asthma, uncomplicated; E66.9 Obesity, unspecified; E86.0 Dehydration; S00.83XA Contusion of other part of head, initial encounter; K21.9 Gastro-esophageal reflux disease without esophagitis; R55 Syncope and collapse; E80.6 Other disorders of bilirubin metabolism; E88.09 Other disorders of plasma-protein metabolism, not elsewhere classified; D75.1 Secondary polycythemia; D75.839 Thrombocytosis, unspecified; C50.912 Malignant neoplasm of unspecified site of left female breast; R74.01 Elevation of levels of liver transaminase levels; I95.9 Hypotension, unspecified; E10.43 Type 1 diabetes mellitus with diabetic autonomic (poly)neuropathy; K31.84 Gastroparesis; Z88.8 Allergy status to other drugs, medicaments and biological substances; Z79.899 Other long term (current) drug therapy; Z87.891 Personal history of nicotine dependence; Z90.710 Acquired absence of both cervix and uterus; Z68.33 Body mass index [BMI] 33.0-33.9, adult; Z88.2 Allergy status to sulfonamides
CPT/HCPCS: 36415; 51798; 70450; 70450-26; 71045; 71045-26; 74177; 74177-26; 80048; 80053; 80306; 80307; 81001; 82010; 82140; 82272; 82550; 82800; 82947; 83036; 83605; 83690; 83735; 84100; 84132; 84484; 85025; 85027; 85610; 85730; 93005; 93010; 93306; 94760; 94761; 96361; 96374; 97110-GP; 97112-GP; 97116-GP; 97162-GP; 97166-GO; 97530-GO; 97530-GP; 97535-GO; 99221; 99223; 99231; 99232; 99239; 99285; 99285-25; A9270-GY; J1644; J1650; J1815; J1815-GY; J1938; J2060; J2405; J2765; J3475; J3480; J7030; J7120; Q9967